=== PATIENT | female | born 1955 | race Caucasian/White ===

== ENCOUNTER → 2023-10-03 15:56 | Outpatient (REF) | payer MEDICARE, SELFPAY | LOC: RAD 15:56 | PROVIDERS: ATTENDING PHYSICIAN Nurse Practitioner Family | DX: E04.1 Nontoxic single thyroid nodule (principal) | CPT/HCPCS: 76536 ==

== ENCOUNTER 2023-11-27 10:33 | Emergency (ER) | payer MEDICARE, SELFPAY ==
[2023-11-27 10:34] VITALS: BMI 34.6
[2023-11-27 10:38] VITALS: BP 140/79
--- NOTE | 2023-11-27 11:17 | ED.GENMED ---
History of Present Illness
General
Chief Complaint: Eye Problems
Source: patient
Exam Limitations: none
Time Seen by Provider: 11/27/23 11:06
Travel History
Have you had any contact with someone who has COVID-19?: No
Do you have any symptoms of coronavirus? Fever > 100 degrees, chills, cough, shortness of breath, sore throat, loss of taste or smell, muscle aches, or headache?: No
History of Present Illness
History of Present Illness:
67-year-old female presents with atraumatic onset of pain and swelling behind the left knee radiating into the leg into the ankle. The pain was a constant ache. No associated chest pain or shortness of breath. She applied ice and elevated. She
notes the swelling might be somewhat better after these interventions. She also noted some right eye discomfort that started this morning. No associated vision change or headache. No fever. No double vision. She denies any discharge or
drainage. No other complaints at this time
Past History
Past History
ED Past Medical History: Cancer (Uterine cancer), NIDDM, Other (Bronchitis, pneumonia, arthritis) and Other (Left jugular DVT from Infusaport along w/ infection from port/line)
ED Past Surgical History: Gynecological (Hysterectomy uterine for CA); Negative Appendectomy or Bowel resection
Social History
Tobacco: Non-smoker
Alcohol: Occasional
Drug: None
Personal:
Living: with family
Employment: Not employed
Family History
Family History: Hypertension
Phy Exam
Physical Exam
Physical Exam:
General: Well-appearing male no acute respiratory distress
HEENT: Normocephalic atraumatic bilateral eyes pupils equal round reactive to light sclera without injection. No proptosis extract motions are intact.
: Regular rate and rhythm no murmurs
Lungs: Clear no wheeze or rales
Musculoskeletal exam: Mild diffuse tenderness about the posterior knee on the left side of the calf and the ankle. No deformities. Good range of motion. No obvious effusion in the ankle or the knee
Vascular: 2+ dorsalis pedis pulse left foot
Neurologic: Alert and oriented no facial asymmetry or slurred speech
Course
Orders/Labs/Results
Orders:
Orders
11/27/23 11:17
Venous Doppler Lwr Ext Left [US Periph Venous LOWER Ext LT] Urgent
Comment:
Reason For Exam: swelling, pain
11/27/23 12:57
Ibuprofen [Motrin] 600 mg PO NOW STA
11/27/23 13:32
Complete Blood Count/With Diff Urgent
Comprehensive Metabolic Panel Urgent
Lyme Progressive Urgent
Sed Rate [Erythrocyte Sed Rate] Urgent
Urinalysis Reflex To Culture Urgent
Date Specimen was Collected: 11/27/23
Time Specimen was Collected: 12:59
11/27/23 13:37
Tetracaine HCl [Tetracaine 0.5% Ophthalmic Solution] 1 drop .ROUTE .STK-MED ONE
Abnormal Lab Results
11/27/23
13:32
Carbon Dioxide 31 H mmol/L
(22-30)
Glucose 111 H mg/dl
(70-99)
11/27/23 13:32
11/27/23 13:32
Vital Signs
Initial and Last Documented VS:
Initial Vital Signs
Temp Pulse Resp BP Pulse Ox
98.2 F 79 16 140/79 96
11/27/23 10:38 11/27/23 10:38 11/27/23 10:38 11/27/23 10:38 11/27/23 10:38
Last Documented Vital Signs
Temp Pulse Resp BP Pulse Ox
98.2 F 79 16 140/79 96
11/27/23 10:38 11/27/23 10:38 11/27/23 10:38 11/27/23 10:38 11/27/23 10:38
MDM/Problems Addressed
Differential Diagnosis Includes:
Atraumatic left leg pain with subjective swelling. Question Poe's cyst versus DVT versus tendinitis. Would not suspect fracture secondary to atraumatic nature
Right discomfort. Unclear etiology. Check pressure. No signs of infection otherwise.
*Critical Care Note
Total Time (30-74mins, 75-104mins- exclusive of procedures): Not Applicable
Update Note
Update Note:
Right eye exam with fluorescein stain and [place]عر[place] lamp. There is no corneal abrasion. There is no foreign body upon eversion of the lids. The pressure was with a Ferny-Pen. The pressure was 15 mmHg. Do not suspect acute glaucoma
Ultrasound left leg ordered secondary to swelling and pain in calf. This was negative for DVT. No signs of infection in the leg. She has a good pulse. Do not suspect arterial compromise.
Labs reviewed without significant finding. Sed rate normal. Do not suspect temporal arteritis causing eye pain. Blood count and chemistry normal. Lyme test pending. Recommended ibuprofen or Tylenol. Stable for discharge. Suspect possible
radicular symptoms to the left leg
ED Attending Note
-
Portions of this chart may have been created with voice recognition software.� Occasional wrong word or��sound alike� substitutions may have occurred due to the inherent limitations of voice recognition software.
Discharge Plan
Departure
Patient Disposition: Home (Routine Discharge)
Date of Disposition: 11/27/23
Time of Disposition: 14:28
Patient with high blood pressure during this ER visit?: No
Discharge Problem:
Leg pain
Instructions: Muscle and Bone Pain (DC)
Prescriptions:
No Action
metformin 500 MG tablet extended release 24 hr
500 mg PO DAILY
Aspirin Low (Enteric Coated):
81 mg PO DAILY
prednisone 10 mg Tablet
See Rx Instructions .ROUTE .COMPLEX Qty: 30 0RF
Rx Instructions:
Take By Mouth:
40 mg daily x3 days, 30 mg daily x3 days,
20 mg daily x3 days, 10 mg daily x3 days.
tramadol 50 mg tablet
50 mg PO TID PRN (Reason: pain) Qty: 12 0RF
ciprofloxacin HCl [Cipro] 250 mg tablet
250 mg PO BID Qty: 10 0RF
benzonatate 200 mg capsule
200 mg PO BID PRN (Reason: cough) Qty: 14 0RF
cephalexin 500 mg capsule
500 mg PO QID 7 Days Qty: 28 0RF
Referrals:
Amrita Coleman CRNP [Family Provider] -
Activity Restrictions/Additional Instructions:
Use Tylenol or ibuprofen for pain. Return here for worsening symptoms otherwise follow-up with your family doctor
Interventions
Interventions:
*Risk Screen - Suicide Last Done: 11/27/23 10:38
*General Assessment Last Done: 11/27/23 10:38
*Neglect/Abuse Screening Last Done: 11/27/23 10:38
ED- Fall Risk Assessment Last Done: 11/27/23 11:12
*ED COVID-19 Vaccine History Last Done: 11/27/23 11:11
ED-Musculoskeletal Assessment Last Done: 11/27/23 11:12
Discharge Date and Time
Print Language: PUERTO RICAN
[2023-11-27] MEDS: MOTRIN 600 MG PO (13:08)
[2023-11-27 13:41] LABS: % Basophils 0.9 % (0-2); % Eosinophils 1.6 % (0-6); % Immature Granulocytes 0.3 % (0-0.5); % Monocytes 6.7 % (1.7-9.3); % Neutrophils 57.5 % (42.2-75.2); Absolute Basophils 0.1 10^3/uL (0-0.2); Absolute Eosinophils 0.1 10^3/uL (0-0.7); Absolute Lymphocytes 2.2 10^3/uL (1.2-3.4); Absolute Monocytes 0.5 10^3/uL (0.1-0.6); Absolute Neutrophils 3.9 10^3/uL (1.4-6.5); Hematocrit 37.5 % (37.0-47.0); Hemoglobin 12.4 g/dL (12.0-16.0); Mean Corp Hgb Conc. 33.1 g/dL (33.0-37.0); Mean Corpuscular Hgb 29.4 pg (27.0-31.0); Mean Corpuscular Volume 88.9 fL (81.0-99.0); Mean Platelet Volume 9.2 fL (7.4-10.4); Nucleated Red Blood Cells % 0 %; Platelet Count 277 10^3/uL (130-400); Red Blood Cell Count 4.22 10^6/uL (4.20-5.40); Red Cell Dist. Width 12.7 % (11.5-14.5); White Blood Cell Count 6.7 10^3/uL (4.8-10.8)
[2023-11-27 13:42] LABS: Urine Albumin Negative (Neg - Trace); Urine Bilirubin Negative (Negative); Urine Character Clear (Clear); Urine Color Yellow; Urine Glucose Negative (Negative); Urine Ketone Negative (Negative); Urine Leukocyte Negative (Negative); Urine Nitrite Negative (Negative); Urine Occult Blood Negative (Negative); Urine Urobilinogen Negative (Neg - 1+)
[2023-11-27 13:57] LABS: Erythrocyte Sed Rate 1 mm/hour (0-20)
[2023-11-27 13:58] LABS: ALT (SGPT) 19 U/L (0-35); AST (SGOT) 22 U/L (14-36); Alkaline Phosphatase 79 U/L (38-126); Blood Urea Nitrogen 11 mg/dl (7-17); Calcium 9.4 mg/dl (8.4-10.2); Carbon Dioxide 31 mmol/L (22-30); Chloride 104 mmol/L (98-107); Estimated Creatinine Clearance 68 ml/min; Glucose 111 mg/dl (70-99); Potassium 4.4 mmol/L (3.5-5.1); Sodium 138 mmol/L (135-145); Total Bilirubin 0.7 mg/dl (0.2-1.3); Total Protein 6.6 g/dl (6.3-8.2); eGFR > 60.00
[2023-11-27 14:37] VITALS: BP 123/69
[2023-11-29 15:03] LABS: Lyme Antibody Screen, EIA Negative (Negative)
== END 2023-11-27 14:37 | disposition home or self-care (01) ==
LOC: EMR 10:33
PROVIDERS: Physician Assistant; EMERGENCY PHYSICIAN Emergency Medicine; FAMILY PHYSICIAN Nurse Practitioner Family
DX: M79.605 Pain in left leg (principal); E11.9 Type 2 diabetes mellitus without complications; Z82.49 Family history of ischemic heart disease and other diseases of the circulatory system; Z85.42 Personal history of malignant neoplasm of other parts of uterus; Z86.718 Personal history of other venous thrombosis and embolism; Z90.49 Acquired absence of other specified parts of digestive tract; Z90.710 Acquired absence of both cervix and uterus
CPT/HCPCS: 99284; 80053; 81003; 85025; 85652; 86618; 93971

== ENCOUNTER → 2023-12-27 15:18 | Outpatient (REF) | payer MEDICARE, SELFPAY | LOC: PAVMRI 15:18 | PROVIDERS: ATTENDING PHYSICIAN Orthopaedic Surgery; FAMILY PHYSICIAN Nurse Practitioner Family | DX: M17.12 Unilateral primary osteoarthritis, left knee (principal); M25.562 Pain in left knee | CPT/HCPCS: 73721 ==

== ENCOUNTER 2024-02-25 04:33 | Inpatient (IN) | payer MEDICARE, SELFPAY ==
[2024-02-24 20:50] VITALS: BP 172/90
[2024-02-24 21:56] VITALS: BP 154/78
[2024-02-24 22:00] VITALS: BP 161/70
[2024-02-24 22:01] VITALS: BMI 33.1
[2024-02-24 22:05] LABS: % Basophils 0.6 % (0-2); % Eosinophils 1.7 % (0-6); % Immature Granulocytes 0.3 % (0-0.5); % Lymphocytes 32.5 % (20.5-51.1); % Monocytes 6.1 % (1.7-9.3); % Neutrophils 58.8 % (42.2-75.2); Absolute Basophils 0.1 10^3/uL (0-0.2); Absolute Eosinophils 0.2 10^3/uL (0-0.7); Absolute Monocytes 0.6 10^3/uL (0.1-0.6); Absolute Neutrophils 5.4 10^3/uL (1.4-6.5); Hematocrit 40.1 % (37.0-47.0); Hemoglobin 13.5 g/dL (12.0-16.0); Mean Corp Hgb Conc. 33.7 g/dL (33.0-37.0); Mean Corpuscular Volume 89.1 fL (81.0-99.0); Mean Platelet Volume 9.1 fL (7.4-10.4); Nucleated Red Blood Cells % 0 %; Platelet Count 265 10^3/uL (130-400); Red Cell Dist. Width 12.5 % (11.5-14.5); White Blood Cell Count 9.1 10^3/uL (4.8-10.8)
[2024-02-24] MEDS: NSS 1000 IV (22:18)
[2024-02-24] MEDS: ZOFRAN 4 MG IV (22:19)
[2024-02-24] MEDS: DILAUDID 1 MG IV (22:19)
[2024-02-24 22:20] LABS: ALT (SGPT) 18 U/L (0-35); AST (SGOT) 21 U/L (14-36); Albumin 4.5 g/dl (3.5-5.0); Alkaline Phosphatase 91 U/L (38-126); Blood Urea Nitrogen 21 mg/dl (7-17); Calcium 9.9 mg/dl (8.4-10.2); Carbon Dioxide 27 mmol/L (22-30); Chloride 103 mmol/L (98-107); Estimated Creatinine Clearance 59 ml/min; Glucose 166 mg/dl (70-99); Lipase 96 U/L (23-300); Potassium 4.1 mmol/L (3.5-5.1); Sodium 137 mmol/L (135-145); Total Bilirubin 0.6 mg/dl (0.2-1.3); eGFR > 60.00
--- NOTE | 2024-02-24 22:35 | ED.GENMED ---
History of Present Illness
General
Chief Complaint: Abdominal Pain
Source: patient and spouse
Exam Limitations: none
Time Seen by Provider: 02/24/24 22:03
Nursing documentation reviewed up to this point in time: agreed with
History of Present Illness
History of Present Illness:
This is a 68-year-old woman who has history of kwn-iqgxlmk-ajlnmgtod diabetes, maintained on metformin. She also has remote history of endometrial carcinoma 2015 treated with hysterectomy and chemotherapy. No reported recurrence. She complains of
constipation over the past several days passing small hard stools. She has not been taking anything for constipation but tonight while attempting to pass a bowel movement, significantly straining, she was successful in passing a few small hard
stools but then developed abrupt onset of moderate to severe right upper quadrant pain that began approximately 30 minutes prior to arrival. Right upper quadrant pain radiates across her upper abdomen to mid abdomen and has been persistent since
onset around 8 PM. She denies nausea nor vomiting, denies chest nor back nor flank pain, no fever nor chills. No dysuria and urgency and or hematuria. No history of similar episodes of pain.
She does admit to occasional episodes of constipation but not on a regular nor frequent basis.
She has not attempted to take anything for pain. No definitive aggravating or relieving factors.
Her only daily medication is metformin.
Past History
Past History
ED Past Medical History: Cancer (Uterine cancer), NIDDM, Other (Bronchitis, pneumonia, arthritis) and Other (Left jugular DVT from [place] along w/ infection from port/line)
ED Past Surgical History: Gynecological (Hysterectomy uterine for CA) and Urological (Bladder lift December 2022); Negative Appendectomy or Bowel resection
Social History
Tobacco: Non-smoker
Alcohol: Occasional
Drug: None
Personal:
Living: with family
Employment: Not employed
Family History
Family History: Hypertension
Phy Exam
Physical Exam
Physical Exam:
GENERAL: 68-year-old overweight woman appears her stated age. Awake and alert, pleasant, appears in moderate distress related to pain. Cooperative. is accompanying.
EYE: anicteric
NECK: Supple, nontender, no meningismus, no significant adenopathy.
ENT: oral mucosa is moist. No rhinorrhea.
CARDIAC: Regular rate and rhythm. no murmur.
LUNGS: Clear breath sounds bilaterally, no acute respiratory distress, no wheezes/rales/rhonchi
ABDOMEN: Rotund, soft, nondistended, exquisite tenderness right upper quadrant as well as mild to moderate tenderness epigastric region, mild guarding of right upper quadrant, no rebound nor rigidity, no palpable masses, no cvat. Mildly hyperactive
bowel sounds.
NEUROLOGICAL: Alert and oriented x3, no focal neuro deficits.
SKIN: Warm and minimally diaphoretic, normal color, skin intact. No rash.
MUSCULOSKELETAL: No C/C/E. peripheral pulses are full and equal b/l. No palpable tenderness.
PSYCH: Mildly anxious related to pain. Cooperative.
Course
Orders/Labs/Results
Orders:
Orders
02/24/24 20:53
Electrocardiogram (*1) Urgent
Reason for Study: Abdominal Pain
EKG- Treatment ONCE
IV Insert/Care/Rem.- Treatment PRN
02/24/24 21:57
Complete Blood Count/With Diff Urgent
Comprehensive Metabolic Panel Urgent
Lipase Urgent
02/24/24 22:15
0.9% Sodium Chloride 1000 ml [Nss] 1,000 ml IV BOLUS
HYDROmorphone [Dilaudid] 1 mg IV NOW STA
Ondansetron Injectable [Zofran] 4 mg IV NOW STA
02/24/24 22:17
HYDROmorphone [Dilaudid] 1 mg .ROUTE .STK-MED ONE
Ondansetron Injectable [Zofran] 4 mg .ROUTE .STK-MED ONE
02/24/24 22:24
Lactic Acid Urgent
02/24/24 23:38
Urinalysis Reflex To Culture Urgent
Date Specimen was Collected: 02/24/24
Time Specimen was Collected: 23:37
Urine Microscopic Reflex Cult Urgent
02/25/24 00:01
CT Abd/pelvis W Iv Cont Urgent
Reason For Exam: severe, acute RUQ-epigastric abd pain
Abnormal Lab Results
02/24/24 02/24/24
21:57 23:38
BUN 21 H mg/dl
(7-17)
Glucose 166 H mg/dl
(70-99)
Leukocyte Esterase Rfl Trace A
(Negative)
Urine Bacteria (Reflex) Few A
(Negative)
02/24/24 21:57
02/24/24 21:57
Vital Signs
Initial and Last Documented VS:
Initial Vital Signs
Temp Pulse Resp BP Pulse Ox
97.9 F 83 22 172/90 98
02/24/24 20:50 02/24/24 20:50 02/24/24 20:50 02/24/24 20:50 02/24/24 20:50
Last Documented Vital Signs
Temp Pulse Resp BP Pulse Ox
97.9 F 83 15 124/59 97
02/24/24 20:50 02/25/24 01:15 02/25/24 01:15 02/25/24 01:15 02/25/24 01:15
MDM/Problems Addressed
Differential Diagnosis Includes:
Concern for acute biliary colic, cholecystitis, pancreatitis, small bowel obstruction, constipation, renal colic/right ureteric stone, ischemic bowel.
Will medicate for pain, initiate IV fluids.
Patient noted to be moderately hypertensive likely related to pain. Afebrile. Without tachycardia. No respiratory distress, normal pulse ox.
Labs are pending including LFTs, lipase. Will add lactic acid, urinalysis.
Will plan for CT abdomen pelvis with IV contrast.
Chronic conditions affecting care: DM, Previous abdomnial surgery (Hysterectomy 2014, bladder lift 2022) and Cancer (Prior history of uterine cancer 2014)
*Radiology
Radiology exam reviewed: radiology read reviewed
*Pulse Oximetry
Patient hypoxic: no
*EKG
Interpreted by ED Provider?: Yes
Interpretation: normal
Comparison EKG: no changes (Unchanged from previous October 2022)
Rate: normal
Rhythm: sinus
[place]: normal axis
Interval: normal interval
QRS Pattern: normal QRS
Ischemia: no ischemia
*Food Operations Manager Interpretation
Rate: normal
Interpretation: normal
Rhythm: sinus
*Critical Care Note
Total Time (30-74mins, 75-104mins- exclusive of procedures): Not Applicable
Update Note
Update Note:
02/25/2024 0156 AM
Labs are unremarkable but CAT scan shows cholelithiasis with suspected 3 mm stone impacted in the cystic duct. Gallbladder wall is thickened up to 5 to 6 mm and minimal haziness in the pericholecystic fat concerning for acute cholecystitis. There
is no bile duct dilatation.
Case discussed with general surgery who recommends patient be admitted to hospitalist service and will evaluate and consult.
Will initiate IV antibiotics and admit to hospitalist service.
ED Attending Note
-
Portions of this chart may have been created with voice recognition software.� Occasional wrong word or��sound alike� substitutions may have occurred due to the inherent limitations of voice recognition software.
Discharge Plan
Departure
Patient Disposition: Admit
Date of Disposition: 02/25/24
Time of Disposition: 01:57
Presentation/result/management discussed w/ accepting MD/DO: Hospitalist
Condition: Fair
Discharge Problem:
Acute calculous cholecystitis
Prescriptions:
No Action
metformin 500 MG tablet extended release 24 hr
500 mg PO DAILY
Referrals:
Sergio Betancourt DO [Family Provider] -
Interventions
Interventions:
*Risk Screen - Suicide Last Done: 02/24/24 20:50
*General Assessment Last Done: 02/24/24 20:50
*Neglect/Abuse Screening Last Done: 02/24/24 20:50
ED- Fall Risk Assessment Last Done: 02/24/24 22:01
*ED COVID-19 Vaccine History Last Done: 02/24/24 22:02
IV-Mwvkgz-Hiuzdktowk Assessment Last Done: 02/24/24 22:02
Discharge Date and Time
Print Language: MACEDONIAN
[2024-02-24 22:49] LABS: Lactic Acid 1.4 mmol/L (0.7-2.0)
[2024-02-24 23:00] VITALS: BP 119/55
[2024-02-24 23:45] LABS: Urine Albumin Negative (Neg - Trace); Urine Bilirubin Negative (Negative); Urine Character Clear (Clear); Urine Color Straw; Urine Glucose Negative (Negative); Urine Ketone Negative (Negative); Urine Leukocyte Trace (Negative); Urine Nitrite Negative (Negative); Urine Occult Blood Negative (Negative); Urine Specific Gravity 1.005 (<1.030); Urine Urobilinogen Negative (Neg - 1+)
[2024-02-25] VITALS (15 sets, daily range): BP systolic 116–140; BP diastolic 59–75; BMI 35.9
[2024-02-25 00:27] LABS: Urine Squamous Cell 0-2 /LPF (Few)
[2024-02-25 00:30] LABS: Urine Bacteria Few (Negative); Urine Red Blood Cell 0-2 /HPF (0-2); Urine White Cell 0-2 /HPF (0-5)
[2024-02-25] MEDS: CEFOTAN 2000 MG IV (02:17)
--- NOTE | 2024-02-25 04:26 | HPS.HSE ---
Family Physician
-
Family Physician: Sergio Betancourt, DO
Chief Complaint
-
RUQ Pain
History of Present Illness
68yo F wtih PMH DM2, Outpatient workup ongoing for Thyroid Nodule, Endometrial Ca (2014) s/p chemo/hysterectomy presents to ER with complaint of RUQ pain. Pt states she ate [employer] (chicen nuggets, fries, caramel latte) last evening. Se they felt
constipated and tried to pass a BM while straining on the toilet. Pain progressed to RUQ, 10/10 in severity. Denies N/V, F/C, dizziness/LH, CP, palps, wheezing, cough, sob, dysuria, flank pain, calf or leg pain. Denies recurrence in past. Denies
ETOH abuse.
ER course: Pt presents V.S.S. WBC 9.1K, BUN/Cr 21/0.9, LA 1.4, LFTs wnl, UA wnl. CT a/p: cholelithiasis with several small calcified gall stones, 3mm gall stone impacted in cystic duct, GB wall thickened 5-6mm, no pericholecystitis fluid. May
signify acute cholecystitis.� S/P Cefotetan 2gm IV, Dilaudid 1mg IV, 1LNS Bolus, and 4mg IV zofran in ER. Case D/W Surgery recommending admission to medicine with eval in AM.
Medical History
Past Medical History
Past Medical History: Reports Other (DM2, Outpatient workup ongoing for Thyroid Nodule, HTN, Endometrial Ca (2014) s/p chemo/hysterectomy)
Past Surgical History: Reports Other (Gynecological (Hysterectomy uterine for CA) and Urological (Bladder lift December 2022); Negative Appendectomy or Bowel resection)
Social History
Tobacco: Non-smoker
Alcohol: None
Drug: None
Personal:
Living: With Family
Family History
Family History: Other (Mother with PPM. Father with ESRD. Brother with DM2)
Allergies / Home Medications
Allergies reflects when Allergies were last updated in [employer].
Home Medications with original date entered in [employer]
Allergy/Medication List:
Allergies
Allergy/AdvReac Type Severity Reaction Status Date / Time
latex [Latex] Allergy Rash Verified 11/27/23 10:43
Sulfa (Sulfonamide Allergy Hives Verified 11/27/23 10:43
Antibiotics)
sulfamethoxazole Allergy Hives Verified 11/27/23 10:43
trimethoprim Allergy Hives Verified 11/27/23 10:43
Home Medications
metformin 500 mg tablet,extended release 24 hr 500 mg PO DAILY 04/15/13
Review of Systems
-
A 12 point ROS was completed and negative except as noted: Yes
Physical Exam
Vital Signs
Vital Signs
Temp Pulse Resp BP Pulse Ox
97.9 F 79 20 137/70 98
02/24/24 20:50 02/25/24 02:00 02/25/24 02:00 02/25/24 02:00 02/25/24 02:00
Physical Exam
General: Well Developed, Well Nourished and No Apparent Distress
HEENT: NormoCephalic, Moist mucous membranes and Atraumatic
Respiratory: Clear
Cardiac: S1/S2 and Regular Rhythm; No Murmur or Rub
GI: Soft, Non Distended, Normal Bowel Sounds and Other (Mild RUQ TTP with deep palpation. ); No Organomegaly
Rectal: Deferred by Provider
Genito-urinary: No costovertebral tender; No Marc
Musculoskeletal: No Clubbing, No Cyanosis and No Edema
Skin: No Rash
Neuro: Awake, Alert, Oriented, AO x 3 and Nonfocal/grossly intact
Psych: Calm
Laboratory Results
-
02/24/24 21:57
02/24/24 21:57
Laboratory Results
Lactic Acid 1.4 mmol/L (0.7-2.0) 02/24/24 22:24
Total Bilirubin 0.6 mg/dl (0.2-1.3) 02/24/24 21:57
AST 21 U/L (14-36) 02/24/24 21:57
ALT 18 U/L (0-35) 02/24/24 21:57
Alkaline Phosphatase 91 U/L (38-126) 02/24/24 21:57
Lipase 96 U/L (23-300) 02/24/24 21:57
Data Reviewed
-
Diagnostic Radiology: Image Personally Visualized and interpreted
CT Scan: Image Personally Visualized and interpreted
Medical Tests (Nuc Med, Echo, EKG etc): Image Personally Visualized and interpreted (EKG: NSR @ 79bpm, Inferior and anterior q-waves, No acute ischemic changes, QTC 415ms. No change from 10/2023.)
Lab Data: Labs Reviewed by me
Old Records: Reviewed
Impression/Plan
-
RUQ Pain / Acute Cholecystitis
- Afebrile, No leukocytosis
- LFTs wnl. Lipase wnl. UA without evidence of infection.
- CT a/p: cholelithiasis with several small calcified gall stones, 3mm gall stone impacted in cystic duct, GB wall thickened 5-6mm, no pericholecystitis fluid. May signify acute cholecystitis.�
- Continue NS @ 100cc/hr
- Change cefotetan to zosyn
- Prn Antiemetics
- Prn Tylenol, Toradol, and IV Morphine for analgesia
- Case D/W Surgery recommending admission to medicine with eval in AM.
Hyperglycemia/DM2 - BG 166 on admission. Pt reports taking metformin only once daily, despite Rx for BID. Holding while NPO. SSI/accuchecks
Thyroid nodule - As per patient, she has outpatient follow up for biopsy.
Diet: NPO
DVT Ppx: Lovenox
Code Status: Full Code
[2024-02-25 07:04] LABS: Glucose - Point of Care 108 mg/dl (70-99)
[2024-02-25 08:20] LABS: Glucose - Point of Care 116 mg/dl (70-99)
[2024-02-25] MEDS: NOVOLOG FLEXPEN-LOW RESISTANCE SC ×2 (08:27→11:35)
[2024-02-25] MEDS: NSS 1000 IV ×2 (09:00→14:31)
--- NOTE | 2024-02-25 09:01 | CON.GS ---
Addendum entered and electronically signed by Austin Gaspar MD 02/25/24 10:44:
I saw and examined the patient independently.
The resident's note was reviewed and I agree with the note, assessment and plan except where noted below.
Comment: This is a 68-year-old female with history of NIDDM, endometrial cancer status postchemotherapy and hysterectomy who presents with a 1 day history of postprandial right upper quadrant pain in the setting of similar attacks in the past.
Labs, imaging, exam all consistent with acute cholecystitis.
Will plan for a laparoscopic cholecystectomy with cholangiogram in the OR today.
N.p.o., IV fluids, IV antibiotics.
Risks/Benefits/Alternatives, expected postoperative course and possible complications (bleeding, infection, injury to surrounding structures, acute/chronic pain) discussed at length. Patient wishes to proceed with surgery. All questions answered.
Consent obtained.
I spent roughly 60 minutes in total for the care of this patient today including direct patient care and counseling, reviewing labs, imaging, coordination of care, as well as documentation.
Original Note:
Consultation
-
Performing Provider: Eric Edward MD ; Austin Gaspar MD
Reason for Consultation: Abdominal pain
Medical History
-
Chief Complaint: Right sided upper abdominal pain
History of Present Illness:
68-year-old female with known medical history of diabetes type 2, endometrial cancer s/p chemo/hysterectomy, ongoing workup for thyroid nodule presented with complaints of right upper quadrant abdominal pain. Patient reports that the pain started
after she ate chicken nuggets and [place] fries yesterday. She reports that she had some milder episodes of similar pain in the past and required no treatment. Reportedly she felt constipated for few days and she was trying to pass a bowel movement
and when she was straining she noticed the onset of pain which progressed in severity to 10 x 10. She denies nausea, vomiting, dizziness, chest pain, shortness of breath, any other symptoms.
ER course: Patient was vitally stable on admission. WBC 9.1K, BUN/Cr 21/0.9, LA 1.4, LFTs wnl, UA wnl.
CT abdomen pelvis: Cholelithiasis with several small calcified gall stones, thickening of gallbladder wall.
Past Medical History
Past Medical History: HTN and Other (DM2, thyroid nodule, endometrial cancer-s/p chemo/as directed)
Past Surgical History: Gynecological (Hysterectomy) and Urological (Bladder lift December 2022)
Social History
Tobacco: Non-Smoker
Alcohol: None
Drug: None
Personal:
Living: With Family
Family History
Family History: Reviewed & Not Pertinent
Allergies / Home Medications
Allergy/AdvReac Type Severity Reaction Status Date / Time
latex [Latex] Allergy Rash Verified 11/27/23 10:43
Sulfa (Sulfonamide Allergy Hives Verified 11/27/23 10:43
Antibiotics)
sulfamethoxazole Allergy Hives Verified 11/27/23 10:43
trimethoprim Allergy Hives Verified 11/27/23 10:43
�Medication �Instructions �Recorded �Confirmed �Type
metformin 500 mg tablet,extended 500 mg PO DAILY diabetes 04/15/13 02/25/24 History
release 24 hr
Review of Systems
-
History Source: Patient
All other systems: Negative unless noted
Abdomen/GI: Abdominal Pain
A 10 point review of systems was completed, and was negative except as per HPI.
Physical Exam
Vital Signs
Temp Pulse Resp BP Pulse Ox
97.7 F 73 15 128/67 96
02/25/24 07:41 02/25/24 07:41 02/25/24 07:41 02/25/24 07:41 02/25/24 07:41
02/24/24 02/25/24 02/26/24
06:59 06:59 06:59
Actual Weight 79.379 kg
Body Mass Index (BMI) 33.1
Lab Results
02/24/24 21:57
02/24/24 21:57
WBC 9.1 10^3/uL (4.8-10.8) 02/24/24 21:57
Hgb 13.5 g/dL (12.0-16.0) 02/24/24 21:57
Hct 40.1 % (37.0-47.0) 02/24/24 21:57
Plt Count 265 10^3/uL (130-400) 02/24/24 21:57
Abs Immat Gran (auto) 0.0 10^3/uL (0-0.05) 02/24/24 21:57
Neutrophils % 58.8 % (42.2-75.2) 02/24/24 21:57
Physical Exam
General: Well Developed and No Apparent Distress
GI: Soft, Non Distended, Tender (Mild tenderness in the right upper quadrant), Obese and Other (Previous well-healed postsurgical scars)
Skin: Warm and Dry
Neuro: Awake, Alert and Oriented
Psych: Calm
Data Reviewed
-
CT Scan: Image Personally Visualized and interpreted and Discussed with Physician
Labs: Labs Reviewed by me, Discussed with Physician and Discussed with Patient
Total Time Spent with Patient (in minutes): 20
Assessment / Plan
-
68-year-old female with known history of diabetes type 2 presented with sudden onset of right upper quadrant pain after eating at [employer] (chicken nuggets and [place] fries)
Acute cholecystitis
-NPO
-IV Zosyn
-Continue IV fluids
-Plan for laparoscopic cholecystectomy
Discussed the procedure with patient at bedside. Reviewed indications for cholecystectomy. Patient in agreement to proceed with surgery for definitive management. Laparoscopic cholecystectomy was reviewed in detail including the operative
technique and and potential operative findings with their management. Discussed benefits of surgery and risks such as but not limited to bleeding, infectious or wound related complications, iatrogenic injury to surrounding viscera.
We discussed the variable timeframe of postoperative recovery and hospitalization pending operative findings. Patient verified understanding.
[2024-02-25] MEDS: ZOSYN 50 IV ×2 (09:02→17:05)
--- NOTE | 2024-02-25 10:11 | CM ---
Patient seen at bedside. Patient states that she lives with her and mother. Patient stated that the home is a 2 story home but she stays on the first floor. Patient stated that she was having difficulty with bills and was anticipating
talking to [facility]. [facility] requesting update re status. Patient PCP is Dr. Dutta and she uses the [facility] in [place] for pharmacy needs. Patient has a cane but no other DME. CM to provide information on resources and CM will continue to
follow for discharge planning needs.
Plan; home with no needs.
--- NOTE | 2024-02-25 12:01 | W.SUR.PREOP ---
Pre-Operative Surgical Note
-
I have examined this patient prior to the performance of the scheduled procedure.
The patient's condition is unchanged from the time of the current History and
Physical and the patient is able to undergo the scheduled procedure.
--- NOTE | 2024-02-25 13:05 | W.IMMPOSTOP ---
Surgical Immed Post Op Note
-
Primary Surgeon: Austin Gaspar MD
Assisting Surgeon: None
Pre-op Diagnosis: Acute cholecystitis
Post-op Diagnosis: Same
Procedure Performed: Laparoscopic cholecystectomy with cholangiogram
Anesthesia Type: General
Specimen / Cultures: Gallbladder and contents
Estimated Blood Loss: 11 cc
Complications: None
Operative Findings: Acutely inflamed gallbladder particular involving the lower third. A critical view of safety was obtained prior to cholangiogram which demonstrated no filling defects and normal biliary anatomy. The duct was ligated with a 0
PDS Endoloop.
POST OP PLAN:
Imaging: None
Labs: Routine AM
Diet: Advance to Regular as tolerated
Analgesia: Tylenol 650mg q6 Xavier, Nita 5mg q6 PRN, Dilaudid 0.5mg q2h PRN
Neuro/vascular checks: q4h
AC/AP: Hold Therapeutic AC, Ok for DVT PPx
Activity: Ad Monet
Wound/Incisions/Drains: Routine
Abx: Continue while in hospital
Dispo: RNF
--- NOTE | 2024-02-25 13:07 | OR.RPT ---
Operative Report
Operative Report
Patient Name: Irene Ross
: 1955
Date of Operation: 02/25/2024
Preoperative Diagnosis: Acute cholecystitis
Postoperative Diagnosis: Same
Procedure(s):
Laparoscopic Cholecystectomy with Cholangiogram
Surgeon(s):
Dr. Gaspar
Budget Coordinator(s):
AMAURI Arevalo
Anesthesia: General
Estimated Blood Loss: 11 cc
Urine Output: None
Drains/Lines/Implants: None
Specimens:
1. Gallbladder and contents
HPI/Surgical Indications:
This is a 68-year-old female who presents with a 1 to 2-day history of postprandial right upper quadrant abdominal pain, in the setting of previous similar attacks in the past. Exam, labs and imaging are consistent with acute cholecystitis.
Risks/Benefits/Alternatives were discussed at length, and the patient agreed to proceed with surgery.
Findings:
The patient was noted to have mild gallbladder inflammation with overlying omental adhesions and edema. A Critical View of Safety was obtained. A cholangiogram showed no filling defects in the biliary system with the Left, Right Anterior, Right
posterior hepatic ducts, CHD, cystic duct and CBD all identified. There was brisk flow of dye into the duodenum.
Procedure Description:
The patient was brought to the Operating Room and placed in the supine position with one arm tucked. Following uneventful induction of general endotracheal anesthesia, an orogastric tube was placed. The abdomen was prepped and draped in the usual
sterile fashion. A timeout was performed confirming the procedure, consent, and that IV antibiotics were infused and sequential compression devices were confirmed to be on. The abdomen was entered using a left subcostal Veress technique which
required 1 pass followed by a right upper quadrant periumbilical 5 mm Optiview trocar. Pneumoperitoneum to 15 mmHg pressure was obtained without difficulty and we confirmed that no injury had occurred during our entry. The patient was positioned in
reverse Trendelenberg and rotated with the right side up slightly. Two 5mm trocars were then placed along the right subcostal margin, and a 12 mm port in the epigastrium. There is a significant adhesions overlying the liver to the anterior
abdominal wall similar to that seen in [place], these were lysed using electrocautery to allow better mobilization of the liver. The gallbladder was also fairly distended but using a locking grasping forceps, the fundus of the gallbladder
wasretracted cephalad and to the right. There was a fair amount of periduodenal fat plastered over the inferior third of the infundibulum, these were lysed with electrocautery and blunt dissection. Using appropriate grasping instruments, the
peritoneum overlying the triangle of Calot was incised and extended superiorly on both the anterior and posterior gallbladder donvoan. The infundibulum was dissected off the cystic plate. The cystic triangle was dissected until a critical view of
safety was achieved. The cystic artery was medialized, dissected and controlled with 2 proximal clips and 1 distal. The cystic duct/gallbladder junction in turn was identified, dissected circumferentially and a clip was placed. A ductotomy was made
and a cholangiocatheter on an Fine clamp was inserted into the cystic duct. A C-arm was draped and brought into the field. An intra-operative cholangiogram was performed and was noted to have:
No filling defects in the biliary tree
No significant biliary dilation
Brisk flow of contrast into the duodenum
Normal biliary anatomy
The catheter was then removed and the cystic duct was controlled with a 5 mm titanium clip followed by a 0 PDS Endoloop . After ensuring both the artery and duct were divided, the gallbladder was freed from the liver using electrocautery. There
was some spillage of bile from our ductotomy, but no spillage of stones. The gallbladder bed was inspected and excellent hemostasis was obtained. The gallbladder was extracted through the 12 mm trocar site using an endocatch bag. The abdomen was
again irrigated and excellent hemostasis was assured. All remaining trocars were then removed and the pneumoperitoneum was evacuated. The 12 mm trocar site was closed using 0 PDS suture. All trocar sites were closed at the skin level using 4-0
Monocryl followed by Dermabond. Overall, the patient tolerated the procedure well and was taken to the Recovery Room postoperatively in stable condition.
I was the attending physician and performed the procedure with assistance from the BOTTOM SPRAYER above. I was present for all portions of the case, excluding skin closure.
Austin Gaspar MD
[2024-02-25] MEDS: DILAUDID 0.25 MG IV ×2 (13:48→14:16)
[2024-02-25 14:00] LABS: Glucose - Point of Care 167 mg/dl (70-99)
--- NOTE | 2024-02-25 14:45 | W.PN.UPDATE ---
Update Note
Progress Note Update
Patient seen and examined after post midnight admission. Patient denies chest pain or shortness of breath. Reports abdominal pain is controlled with analgesics at this time. Vital signs stable. No acute distress, regular rate and rhythm, normal
S1-S2. Clear to auscultation bilaterally. Positive bowel sounds, soft, nontender to light palpation, nondistended. For laparoscopic cholecystectomy today.
--- NOTE | 2024-02-25 15:00 | PTCARENOTE ---
Patient returned from PACU in bed; IVF infusing; Patient on 2L NC; Patient states pain is a 5 out of 10 and has improved with medication (see MAR); 5 Lap sites open to air with surgical glue; Call cabral within reach; Bed in lowest position and wheels
locked; Assessment and care ongoing
[2024-02-25] MEDS: ZOFRAN 4 MG IV ×2 (15:37→21:37)
[2024-02-25 16:43] LABS: Glucose - Point of Care 181 mg/dl (70-99)
--- NOTE | 2024-02-25 17:00 | PTCARENOTE ---
Patient with episode of nausea/vomiting; Patient vomited about 100mL of green fluid; Surgery MELTER OPERATOR made aware; Diet changed from regular to clear liquids; Care ongoing
[2024-02-25] MEDS: NOVOLOG FLEXPEN-LOW RESISTANCE 1 UNITS SC (17:06)
[2024-02-25] MEDS: LOVENOX 40 MG SC (17:06)
[2024-02-25] MEDS: DILAUDID 1 MG IV (21:04)
[2024-02-25 23:05] LABS: Glucose - Point of Care 200 mg/dl (70-99)
[2024-02-26 03:12] VITALS: BP 120/64
[2024-02-26] MEDS: NSS 1000 IV (03:37)
[2024-02-26] MEDS: ZOSYN 50 IV ×3 (05:34→12:04)
--- NOTE | 2024-02-26 07:16 | W.PN.HOSP.TC ---
Today's Communication/Plan
-
see bold
Assessment / Plan
Assessment / Plan
Gen: NAD, AAOx3.
Eyes: EOMI, PERRLA, no scleral icterus.
Neck: supple.
CV: RRR, +S1/S2, no m/r/g.
Resp: CTAB, no rales, wheezes, or rhonchi.
Abd: +BS, soft, NT to light palpation, ND
Skin: No rashes.
Neuro: CN 2-12 intact, non-focal.
Psych: Normal mood and affect.
CT A/P: Gallstones with a possible stone in the cystic duct. Associated gallbladder wall thickening. Possible acute cholecystitis. Abdominal ultrasound recommended if not previously performed. All findings are new.
Acute cholecystitis:
-s/p laparoscopic cholecystectomy with cholangiogram on 02/25/24
-currently on Zosyn, will likely stop today
-IVFs
-surgery following
-pain control
-currently on clears
DM2:
-change SSI to mod resistance
-check a1c
Thyroid nodule: As per patient, she has outpatient follow up for biopsy
Obesity due to excess calories
FULL/Lovenox
Anticipated Discharge: Within 24 hours
Subjective/Interval History
-
Date of Service: February 26, 2024
Pt states she was vomiting all night. Denies abdominal pain if she doesn't move.
Objective Data
-
Labs:
Laboratory Results
02/26/24
06:00
WBC Pending
Hgb Pending
Hct Pending
Plt Count Pending
Sodium Pending
Potassium Pending
Chloride Pending
Carbon Dioxide Pending
BUN Pending
Creatinine Pending
Glucose Pending
Calcium Pending
Total Bilirubin Pending
AST Pending
ALT Pending
Alkaline Phosphatase Pending
Vital Signs:
Vital Signs
Temp Pulse Resp BP Pulse Ox
98.1 F 81 20 120/64 92
02/26/24 03:12 02/26/24 03:12 02/26/24 03:12 02/26/24 03:12 02/26/24 03:12
I&O
02/25/24 02/26/24 02/27/24
06:59 06:59 06:59
Intake Total 3010 / 3010
Output Total 150 / 150
Balance 2860 / 2860
[2024-02-26 07:30] VITALS: BP 126/70
[2024-02-26 08:36] LABS: Glucose - Point of Care 147 mg/dl (70-99)
[2024-02-26] MEDS: TORADOL 10 MG IV (08:54)
[2024-02-26 10:17] LABS: % Basophils 0.2 % (0-2); % Immature Granulocytes 0.5 % (0-0.5); % Lymphocytes 15.5 % (20.5-51.1); % Monocytes 6.6 % (1.7-9.3); % Neutrophils 77.2 % (42.2-75.2); Absolute Immature Granulocytes 0.1 10^3/uL (0-0.05); Absolute Lymphocytes 1.5 10^3/uL (1.2-3.4); Absolute Monocytes 0.6 10^3/uL (0.1-0.6); Absolute Neutrophils 7.4 10^3/uL (1.4-6.5); Hematocrit 37.6 % (37.0-47.0); Hemoglobin 12.3 g/dL (12.0-16.0); Mean Corp Hgb Conc. 32.7 g/dL (33.0-37.0); Mean Corpuscular Hgb 29.9 pg (27.0-31.0); Mean Corpuscular Volume 91.3 fL (81.0-99.0); Mean Platelet Volume 9.5 fL (7.4-10.4); Nucleated Red Blood Cells % 0 %; Platelet Count 245 10^3/uL (130-400); Red Blood Cell Count 4.12 10^6/uL (4.20-5.40); Red Cell Dist. Width 12.9 % (11.5-14.5); White Blood Cell Count 9.5 10^3/uL (4.8-10.8)
[2024-02-26 11:03] LABS: ALT (SGPT) 69 U/L (0-35); AST (SGOT) 57 U/L (14-36); Alkaline Phosphatase 80 U/L (38-126); Blood Urea Nitrogen 13 mg/dl (7-17); Calcium 8.9 mg/dl (8.4-10.2); Carbon Dioxide 27 mmol/L (22-30); Chloride 105 mmol/L (98-107); Direct Bilirubin 0.2 mg/dl (0.0-0.4); Estimated Creatinine Clearance 69 ml/min; Glucose 125 mg/dl (70-99); Potassium 4.7 mmol/L (3.5-5.1); Sodium 138 mmol/L (135-145); Total Protein 6.4 g/dl (6.3-8.2); eGFR > 60.00
[2024-02-26 11:32] VITALS: BP 138/72
[2024-02-26 13:12] LABS: Glucose - Point of Care 103 mg/dl (70-99)
--- NOTE | 2024-02-26 14:49 | CM ---
Reviewed the chart notes and spoke with the patient at the bedside. IMM signed and placed on the chart. CM continues to be available to patient/family and is monitoring medical plan for needs at discharge.
Plan: Discharge to home when medically stable.
[2024-02-26 15:06] VITALS: BP 123/68
--- NOTE | 2024-02-26 16:08 | W.PN.GS2 ---
Today's Communication / Plan
-
Dispo planning
Assessment / Plan
-
68-year-old female postoperative day 1 laparoscopic cholecystectomy for acute cholecystitis. Significant nausea and vomiting overnight however this is resolved, doing well, expected postoperative course.
Time Spent
Total Time Spent with Patient (in minutes): 25
Subjective Data
-
Date of Service: February 26, 2024
Interval Events:
No acute events overnight. Slept well. Pain Controlled. Denies Nausea/Vomiting, +bowel function. Tolerating diet.
Objective Data
-
Intake and Output
02/25/24 02/26/24 02/27/24
06:59 06:59 06:59
Intake Total 3010 / 3010
Output Total 150 / 150
Balance 2860 / 2860
Intake:
Oral fluids 960 / 960
IV fluids (Total) 1850 / 1850
Normosol 150 / 150
IV piggybacks 200 / 200
Output:
Emesis 150 / 150
Other:
Number of approximated MODERATE 3
amounts of urine
Number of approximated LARGE 2
amounts of urine
Number of immeasurable emeses? 1
Vital Signs
Temp Pulse Resp BP Pulse Ox
98.3 F 73 16 123/68 95
02/26/24 15:06 02/26/24 15:06 02/26/24 15:06 02/26/24 15:06 02/26/24 15:06
Lab Results
02/26/24 09:08
02/26/24 09:08
Calcium 8.9 mg/dl (8.4-10.2) 02/26/24 09:08
Total Bilirubin 1.0 mg/dl (0.2-1.3) 02/26/24 09:08
Direct Bilirubin 0.2 mg/dl (0.0-0.4) 02/26/24 09:08
AST 57 U/L (14-36) H 02/26/24 09:08
ALT 69 U/L (0-35) H 02/26/24 09:08
Alkaline Phosphatase 80 U/L (38-126) 02/26/24 09:08
Total Protein 6.4 g/dl (6.3-8.2) 02/26/24 09:08
Albumin 4.0 g/dl (3.5-5.0) 02/26/24 09:08
Physical Exam
-
GENERAL/NEURO: Awake, Alert, no distress
CHEST: Unlabored breathing on RA
ABDOMEN: Soft, Non-Tender, Non-Distended, incisions clean dry and intact.
[2024-02-27 09:08] LABS: Glycohemoglobin (HgbA1c) 6.9 % (4.0-5.6)
--- NOTE | 2024-02-29 12:58 | W.DCSUMMARY ---
Discharge Summary
Discharge Data
Date of Admission: 02/25/24
Date of Discharge: 02/29/24
-
Pending Results: No
Hospital Course
68-year-old female who presents with a 1 to 2-day history of postprandial right upper quadrant abdominal pain, in the setting of previous similar attacks in the past. Exam and imaging were consistent with acute calculous cholecystitis and she was
taken to the OR for laparoscopic cholecystectomy which she tolerated well. She was discharged to home once able to tolerate a diet post operatively with good control of pain. Outpatient follow up planned in the coming weeks.
Discharge Plan
-
Patient Disposition: Home (Routine Discharge)
Discharge Diagnosis/Procedures: Acute cholecystitis status post laparoscopic cholecystectomy
Condition: Good
Diet: No restrictions
Activity: No strenuous activity
Driving Restrictions: As prior to admission
Bathing Restrictions: OK to Shower
Activity Restrictions/Additional Instructions:
Instructions following Laparoscopic cholecystectomy
Please call [phone] if you have any questions or concerns after your surgery.
Wound Care:
Your incisions are covered with skin glue which will come off on it�s own in 5-10 days.
It is ok to shower the day after your surgery. Do not scrub the incisions, let soap and water wash over them and pat dry.
� Bruising around your incisions is normal.
� Using ice packs will help minimize this swelling.
� No swimming or soaking incisions for 1 week.
� Your stitches will dissolve and do not need to be removed.
Urinary retention:
If you are unable to urinate 6-8 hours after your surgery, please call [phone] to discuss further management.
Activity:
No heavy lifting more than 15 pounds for the next 3 weeks, then you may gradually lift heavier objects as tolerated by discomfort. Otherwise activity as tolerated by your comfort level.
Pain Management:
Use Tylenol, ibuprofen and ice packs to treat your pain.
� You may take 650 milligrams of Tylenol (Max 3 grams per day) every 6 hours, and 600 mg of ibuprofen also every 6 hours. (you can alternate them every 3 hours)
� You may use an ice pack to your incision as needed.
� If you still have pain not controlled by these measures, take your prescription pain medication as prescribed.
Medications:
You may resume your home medications.
Bowel Medications:
Prescription pain medication can make you constipated. If you take this medication, also take colace 100 mg twice daily (this is over the counter). If this is not sufficient, you may take Miralax (polyethylene glycol) to help move your bowels.
Diet:
After your procedure, there are no dietary restrictions. You may notice loose stools for up to 4 weeks after surgery with fatty meals, if this is the case you may have to adjust your diet as needed.
Driving restrictions:
No driving if you are taking prescription pain medication or if you think your normal reaction time and attentiveness has been slowed by your surgery.
Things to Look out for:
Worsening Abdominal pain, redness or drainage from incision
Call Doctor for:
Please call if you notice worsening redness or drainage from incision(s) lasting longer than 5 days after your surgery, any foul-smelling drainage from the incision, pain not controlled by pain medications, persistent nausea and vomiting, or for any
fevers greater than 101.3 F. The number for questions/concerns is [phone]
Follow-up:
Follow-up appointment will be scheduled with your surgeon in 3-4 weeks. Please call prior to your appointment if you have any questions or concerns. [phone]
Referrals:
Austin Gaspar MD [Active] - in two to four weeks
Sergio Betancourt DO [Non-Admitting Privileges] -
Prescriptions:
New
acetaminophen [acetaminophen] 325 mg tablet
650 mg PO Q6HPRN PRN (Reason: mild pain) Qty: 14 0RF
tramadol 50 mg tablet
25 mg PO Q6HPRN PRN (Reason: severe pain/breakthrough pain) Qty: 8 0RF
ibuprofen 600 mg tablet
600 mg PO Q6H PRN (Reason: pain) Qty: 14 0RF
Continued
metformin 500 MG tablet extended release 24 hr
500 mg PO DAILY
Discharge Orders:
Discharge Patient (As Directed); Ordered 02/26/24
Ordered By: Austin Gaspar
Discharge Date and Time
Discharge Date/Time: 02/26/24 16:36
Print Language: SLOVAK
== END 2024-02-26 16:36 | disposition home or self-care (01) | DRG 419 ==
LOC: 2 SOUTH 04:33
PROVIDERS: Emergency Medicine; ADMITTING PHYSICIAN Internal Medicine; ATTENDING PHYSICIAN Internal Medicine; EMERGENCY PHYSICIAN Emergency Medicine; OTHER PHYSICIAN Surgery
PROC: BF141ZZ Fluoroscopy of Gallbladder, Bile Ducts and Pancreatic Ducts using Low Osmolar Contrast (ICD-10-PCS; 2024-02-25)
PROC: 0FT44ZZ Resection of Gallbladder, Percutaneous Endoscopic Approach (ICD-10-PCS; 2024-02-25)
PROC: 0DNU4ZZ Release Omentum, Percutaneous Endoscopic Approach (ICD-10-PCS; 2024-02-25)
DX: K80.00 Calculus of gallbladder with acute cholecystitis without obstruction (principal); K66.0 Peritoneal adhesions (postprocedural) (postinfection)
CPT/HCPCS: 88304; 74177; 74300; 76000; 80053; 81003; 81015; 82248; 82962; 83036; 83605; 83690; 85025; 93005; 96361; 96374; 96375; 99285; Q9967

== ENCOUNTER → 2024-03-05 12:00 | Outpatient (REF) | payer MEDICARE, SELFPAY | LOC: RADI 12:00 | PROVIDERS: ATTENDING PHYSICIAN Internal Medicine Endocrinology, Diabetes & Metabolism; FAMILY PHYSICIAN Family Medicine | DX: E04.1 Nontoxic single thyroid nodule (principal) | CPT/HCPCS: 88173; 10005 ==

== ENCOUNTER 2024-05-20 11:43 | Emergency (ER) | payer MEDICARE, SELFPAY ==
[2024-05-20 11:47] VITALS: BP 145/81
--- NOTE | 2024-05-20 12:21 | ED.GENMED ---
History of Present Illness
<PHILIPP Cooper Last Filed: 05/20/24 15:07>
General
Chief Complaint: Back Pain
Source: patient
Exam Limitations: none
Time Seen by Provider: 05/20/24 11:55
Nursing documentation reviewed up to this point in time: agreed with
History of Present Illness
History of Present Illness:
Patient is a 68-year-old female with history diabetes, hypertension, past history of uterine CA currently in remission presenting to the emergency department for evaluation of upper back pain since yesterday. Patient reports initially noticed pain
in her upper back, between her shoulder blades, late morning while she was doing her typical daily routines in her house. Pain has been essentially constant since. There may be some mild positional component. Patient denies any clear exertional
or pleuritic component to pain. Patient denies any other associated symptoms including chest pain, shortness of breath, dizziness/lightheadedness, numbness/tingling, fever, or cough. Patient denies any known trauma.
Patient was seen by her primary care provider this morning for evaluation of upper back pain where an EKG was performed. Patient was sent to the emergency department for further evaluations rule out cardiac process
Patient denies any recent travel or recent surgery.
Past History
<PHILIPP Cooper Last Filed: 05/20/24 15:07>
Past History
ED Past Medical History: Cancer (Uterine cancer), NIDDM, Other (Bronchitis, pneumonia, arthritis) and Other (Left jugular DVT from Infusaport along w/ infection from port/line)
ED Past Surgical History: Gynecological (Hysterectomy uterine for CA) and Urological (Bladder lift December 2022); Negative Appendectomy or Bowel resection
Social History
Tobacco: Non-smoker
Alcohol: Occasional
Drug: None
Personal:
Living: with family
Employment: Not employed
Family History
Family History: Hypertension
Review of Systems
<Katlyn Knox PA-C - Last Filed: 05/20/24 15:07>
Review of Systems
Allergies reviewed?: Yes
All Other Systems: ROS reviewed and negative except as documented in HPI and ROS
Phy Exam
<Katlyn Knox PA-C - Last Filed: 05/20/24 15:07>
Physical Exam
Physical Exam:
Vitals: Mildly hypertensive. Otherwise
General: Patient is well appearing, no acute distress
Skin: Warm and dry, no rashes or lesions
Head: Normocephalic, atraumatic
Eyes: Sclera nonicteric. EOMs intact. No nystagmus.
Throat: Protecting airway
Neck: Normal ROM, no cervical spine tenderness, no meningismus
Cardiac: Regular rate and rhythm, no murmurs.
Pulm: Normal respiratory effort, no wheezes, rales, rhonchi heard on exam.
Abdomen: Abdomen soft. No abdominal tenderness.
Back: No midline spinal tenderness. No reproducible mid scapular tenderness. No rash or ecchymoses.
Extremities: No evidence of cyanosis or edema. Great distal pulses
Neuro: AAOx3. CN II-XII intact. No focal neurologic deficits.
Psychiatric: Normal affect.
Scores
<Katlyn Knox PA-C - Last Filed: 05/20/24 15:07>
Heart Score for Chest Pain Patients
STEMI patient?: No
History: Slightly or Non-Suspicious
ECG: Nonspecific Repolarization
Age: >/= 65 years
Risk Factors: 1 or 2 Risk Factors
Troponin: </= Normal Limit
Heart Score for Chest Pain Patients: 4
Heart Score Risk: 20.3% MACE over next 6 weeks
Course
<Katlyn Knox PA-C - Last Filed: 05/20/24 15:07>
Orders/Labs/Results
Orders:
Orders
10/29/24 11:45
Electrocardiogram (*1) Urgent
Reason for Study: Chest Pain
EKG- Treatment ONCE
05/20/24 12:27
Complete Blood Count/With Diff Urgent
Comprehensive Metabolic Panel Urgent
D-Dimer Urgent
Troponin I Urgent
05/20/24 13:10
CT Chest Pe Study Urgent
Comment: hx CA, hx DVT
Reason For Exam: Mid scapular pain
0.9% Sodium Chloride 500 ml [Nss] 500 ml IV BOLUS
05/20/24 12:27
05/20/24 12:27
Vital Signs
Initial and Last Documented VS:
Initial Vital Signs
Temp Pulse Resp BP Pulse Ox
98.0 F 81 18 145/81 98
05/20/24 11:47 05/20/24 11:47 05/20/24 11:47 05/20/24 11:47 05/20/24 11:47
Last Documented Vital Signs
Temp Pulse Resp BP Pulse Ox
98.0 F 81 18 145/81 98
05/20/24 11:47 05/20/24 11:47 05/20/24 11:47 05/20/24 11:47 05/20/24 11:47
<Gabriel Walter MD - Last Filed: 05/20/24 13:22>
Orders/Labs/Results
Orders:
Orders
05/20/24 11:45
Electrocardiogram (*1) Urgent
Reason for Study: Chest Pain
EKG- Treatment ONCE
05/20/24 12:27
Complete Blood Count/With Diff Urgent
Comprehensive Metabolic Panel Urgent
D-Dimer Urgent
Troponin I Urgent
05/20/24 13:10
CT Chest Pe Study Urgent
Comment: hx CA, hx DVT
Reason For Exam: Mid scapular pain
0.9% Sodium Chloride 500 ml [Nss] 500 ml IV BOLUS
05/20/24 12:27
05/20/24 12:27
Vital Signs
Initial and Last Documented VS:
Initial Vital Signs
Temp Pulse Resp BP Pulse Ox
98.0 F 81 18 145/81 98
05/20/24 11:47 05/20/24 11:47 05/20/24 11:47 05/20/24 11:47 05/20/24 11:47
Last Documented Vital Signs
Temp Pulse Resp BP Pulse Ox
98.0 F 81 18 145/81 98
05/20/24 11:47 05/20/24 11:47 05/20/24 11:47 05/20/24 11:47 05/20/24 11:47
<Katlyn Knox PA-C - Last Filed: 05/20/24 15:07>
MDM/Problems Addressed
Differential Diagnosis Includes:
Not limited to: Muscle strain, pericarditis, myocarditis, pneumothorax, pneumonia, PE, ACS, etc.
MDM/Problems Addressed:
68-year-old female presenting with 1 day of constant atraumatic mid scapular pain. There is some some positional component although no clear pleuritic or exertional component to pain. No associated chest pain, shortness of breath, cough, fevers.
No known trauma or inciting injury. Seen by PCP and referred to emergency department for further cardiac workup. Mildly hypertensive, otherwise vital signs are stable. Exam as above. Etiology somewhat broad although considerations include
musculoskeletal etiology versus more serious cardiac/pulmonary etiology. Lower suspicion for infectious cause given patient is afebrile with no other infectious symptoms. EKG initiated in triage which show normal sinus without acute ischemic
changes�some nonspecific T wave flattening in lateral leads. Will obtain basic labs. Given risk factors�will check troponin. Patient without any PE risk factors other than remote cancer history�would consider low risk will screen with D-dimer.
Plan for chest imaging (x-ray vs CTA chest) pending d-dimer. Will closely monitor and reassess
Chronic conditions affecting care:
Hypertension, DM
Acute Exacerbation and/or Progression of Chronic Illness:
Acutely hypertensive
<Katlyn Knox PA-C - Last Filed: 05/20/24 15:07>
*Radiology
Radiology exam reviewed: preliminary read by ED provider and radiology read reviewed
*Pulse Oximetry
Patient hypoxic: no
*EKG
Interpreted by ED Provider?: Yes
EKG Intrepretation Date: 05/20/24
Interpretation: abnormal
Comparison EKG: changes noted
Heart Rate: 71
Rate: normal
Rhythm: sinus
[place]: normal axis
Interval: normal interval
QRS Pattern: normal QRS
Ischemia: non-specific ST changes (Nonspecific T wave flattening in V5/V6 prior)
*Major Appliance Assembly Supervisor Interpretation
Rate: Major Appliance Assembly Supervisor- N/A
*Critical Care Note
Total Time (30-74mins, 75-104mins- exclusive of procedures): Not Applicable
<Katlyn Knox PA-C - Last Filed: 05/20/24 15:07>
Update Note
Update Note:
Update 1:19 PM: Labs noted. No abnormalities. Troponin is undetectable. Given symptoms have been ongoing for the past 24 hours�feel 1 troponin is sufficient to rule out acute AL. D-dimer is negative. Although did speak with attending physician
and given risk factors�will obtain CTA of chest.
Update 2:30 PM: CTA report reviewed. No acute abnormalities. Into reassess patient who remained stable. It is possible this is a musculoskeletal etiology. Low suspicion for acute cardiac/pulmonary emerge process given negative workup. Feel
patient is stable for discharge with return precautions and primary care follow-up. Patient comfortable with plan.
ED Attending Note
<Katlyn Knox PA-C - Last Filed: 05/20/24 15:07>
-
Portions of this chart may have been created with voice recognition software.� Occasional wrong word or��sound alike� substitutions may have occurred due to the inherent limitations of voice recognition software.
<Gabriel Walter MD - Last Filed: 05/20/24 13:22>
ED Attending Note
Patient seen and examined by attending physician: Yes
ED Attending Note:
I have seen and evaluated the patient with a [id number] encounter. I have spoken to the advance practicer provider and involved in the medical history, the physical exam, medical decision making.
Evaluation and management service: agree unless noted differently below.
Results interpretation: agree unless noted differently below.
Focused HPI: 68-year-old female with a past medical history as document presents to the ER for evaluation of scapular pain. Patient reports that she woke up yesterday with pain between her shoulder blades. She describes a constant dull pain that
will occasionally become sharp with certain movements. She denies any associated shortness of breath. She denies any cough, fevers, recent illness. She denies any swelling or pain in the legs. She denies having any similar symptoms in the past.
She denies any known trauma or injury. She was referred by her PCP to be evaluated in the ER. She does have distant history of uterine cancer status post hysterectomy she is in remission for nearly 10 years she says. She does have history of DVT
associated with chemotherapy port; she is no longer on anticoagulation.
Physical exam: Awake alert not in distress. Vital signs normal. She has no cardiac rubs gallops or murmurs. Lungs clear to auscultation bilaterally. She has no point tenderness in the back. No edema in the extremities.
Medical Decision Makin-year-old female presents to the emergency room for evaluation of scapular pain that started yesterday and has been constant. Vitals and exam as above. Sent labs including CBC and CMP. Check troponin and EKG. Check CTA
chest. Reassess after the above.
Discharge Plan
Departure
Patient Disposition: Home (Routine Discharge)
Date of Disposition: 05/20/24
Time of Disposition: 14:44
Patient with high blood pressure during this ER visit?: Yes
Condition: Good
Covid-19: Not Applicable
Discharge Problem:
Upper back pain
Instructions: Upper Back Pain (DC), BLOOD PRESSURE
Prescriptions:
No Action
metformin 500 MG tablet extended release 24 hr
500 mg PO DAILY
acetaminophen [acetaminophen] 325 mg tablet
650 mg PO Q6HPRN PRN (Reason: mild pain) Qty: 14 0RF
tramadol 50 mg tablet
25 mg PO Q6HPRN PRN (Reason: severe pain/breakthrough pain) Qty: 8 0RF
ibuprofen 600 mg tablet
600 mg PO Q6H PRN (Reason: pain) Qty: 14 0RF
Referrals:
Gregg Orosco MD [Active] - As needed
Ann-Marie Betancourt DO [Family Provider] - Follow up in 5-7 days
Activity Restrictions/Additional Instructions:
RETURN TO THE EMERGENCY DEPARTMENT WITH ANY FEVERS, CHEST PAIN, SHORTNESS OF BREATH, LIGHTHEADEDNESS/DIZZINESS, WORSENING IN CURRENT SYMPTOMS, OR ANY OTHER CONCERNS
�You should continue to take Tylenol/Motrin as needed at home for any discomfort. Stable hydrated and get plenty rest.
-Follow-up with your primary care provider for further evaluation/management to ensure that symptoms are improving
-A name for a parking assistant has been provided you above should you need to follow-up with them in the future
Monitor your symptoms closely return to the emergency department any acute worsening/new symptoms
Interventions
Interventions:
*Risk Screen - Suicide Last Done: 05/20/24 11:47
*General Assessment Last Done: 05/20/24 15:04
*Neglect/Abuse Screening Last Done: 05/20/24 11:47
*ED COVID-19 Vaccine History Last Done: 05/20/24 11:47
*Nursing Disposition Last Done: 05/20/24 15:04
ED-Musculoskeletal Assessment Last Done: 05/20/24 13:14
Discharge Date and Time
Print Language: KYRGYZ
[2024-05-20 12:44] LABS: % Basophils 0.8 % (0-2); % Eosinophils 1.2 % (0-6); % Immature Granulocytes 0.4 % (0-0.5); % Lymphocytes 32.6 % (20.5-51.1); % Monocytes 6.6 % (1.7-9.3); % Neutrophils 58.4 % (42.2-75.2); Absolute Basophils 0.1 10^3/uL (0-0.2); Absolute Eosinophils 0.1 10^3/uL (0-0.7); Absolute Lymphocytes 2.4 10^3/uL (1.2-3.4); Absolute Monocytes 0.5 10^3/uL (0.1-0.6); Absolute Neutrophils 4.3 10^3/uL (1.4-6.5); Hematocrit 37.5 % (37.0-47.0); Hemoglobin 12.5 g/dL (12.0-16.0); Mean Corp Hgb Conc. 33.3 g/dL (33.0-37.0); Mean Corpuscular Hgb 29.1 pg (27.0-31.0); Mean Corpuscular Volume 87.4 fL (81.0-99.0); Mean Platelet Volume 9.2 fL (7.4-10.4); Nucleated Red Blood Cells % 0 %; Platelet Count 268 10^3/uL (130-400); Red Blood Cell Count 4.29 10^6/uL (4.20-5.40); Red Cell Dist. Width 12.7 % (11.5-14.5); White Blood Cell Count 7.4 10^3/uL (4.8-10.8)
[2024-05-20 12:56] LABS: D-Dimer 0.35 ug/mlFEU (0.00-0.50)
[2024-05-20 13:01] LABS: ALT (SGPT) 20 U/L (0-35); AST (SGOT) 22 U/L (14-36); Albumin 4.1 g/dl (3.5-5.0); Alkaline Phosphatase 78 U/L (38-126); Blood Urea Nitrogen 14 mg/dl (7-17); Calcium 9.3 mg/dl (8.4-10.2); Carbon Dioxide 29 mmol/L (22-30); Chloride 105 mmol/L (98-107); Glucose 85 mg/dl (70-99); Potassium 4.2 mmol/L (3.5-5.1); Sodium 142 mmol/L (135-145); Total Bilirubin 0.6 mg/dl (0.2-1.3); Total Protein 6.5 g/dl (6.3-8.2); eGFR > 60.00
[2024-05-20 13:11] LABS: Troponin I < 0.012 ng/ml
[2024-05-20] MEDS: NSS 500 IV (13:56)
== END 2024-05-20 15:05 | disposition home or self-care (01) ==
LOC: EMR 11:43
PROVIDERS: Physician Assistant; EMERGENCY PHYSICIAN Emergency Medicine; FAMILY PHYSICIAN Family Medicine
DX: M54.6 Pain in thoracic spine (principal); E11.9 Type 2 diabetes mellitus without complications; I10 Essential (primary) hypertension; Z82.49 Family history of ischemic heart disease and other diseases of the circulatory system; Z85.42 Personal history of malignant neoplasm of other parts of uterus; Z86.718 Personal history of other venous thrombosis and embolism; Z90.49 Acquired absence of other specified parts of digestive tract; Z90.710 Acquired absence of both cervix and uterus
CPT/HCPCS: 99284; 71275; 80053; 84484; 85025; 85379; 93005; Q9967

== ENCOUNTER 2024-07-25 20:58 | Emergency (ER) | payer MEDICARE, SELFPAY ==
[2024-07-25 21:01] VITALS: BP 142/75
--- NOTE | 2024-07-25 21:02 | ED.GENMED ---
ED Provider Triage
<Sudheer Ty PA-C - Last Filed: 07/25/24 21:06>
-
Patient seen by provider in Triage?: Seen in Triage
1hr ago, headache described to be worst headache she has had. Bifrontal headache. No history of migraines. No fevers/vomiting. Patient appears uncomfortable but no meningismus. CT and CTA head/neck ordered. Pt brought directly to CT
History of Present Illness
<Sudheer Ty PA-C - Last Filed: 07/25/24 21:06>
General
Chief Complaint: Headache
Time Seen by Provider: 07/26/24 00:09
<ASHLEY Jaramillo - Last Filed: 07/26/24 02:28>
General
Source: patient
Exam Limitations: none
History of Present Illness
History of Present Illness:
This is a 68 year old female that comes in with c/o headache. States that she started with a fever and then she got a headache behind the eyes, her head and into her jaw. State that her temp was 102 with chills tonight. States that she was
nauseated. Denies any chills, chest pain, SOB, abd pain, vomiting, diarrhea, dizziness, urinary burning.
Past History
<Sudheer Ty PA-C - Last Filed: 07/25/24 21:06>
Past History
ED Past Medical History: Cancer (Uterine cancer), NIDDM, Other (Bronchitis, pneumonia, arthritis) and Other (Left jugular DVT from Infusaport along w/ infection from port/line)
ED Past Surgical History: Gynecological (Hysterectomy uterine for CA) and Urological (Bladder lift December 2022); Negative Appendectomy or Bowel resection
Social History
Tobacco: Non-smoker
Alcohol: Occasional
Drug: None
Personal:
Living: with family
Employment: Not employed
Family History
Family History: Hypertension
<ASHLEY Jaramillo - Last Filed: 07/26/24 02:28>
Past History
ED Past Medical History: Cancer (Uterine cancer with Mets), HTN and Other (Bronchitis, pneumonia, arthritis, back and neck pain, PNA, DVT, )
ED Past Surgical History: Cholecystectomy and Other (cataracts)
Social History
Alcohol: None
Review of Systems
<ASHLEY Jaramillo - Last Filed: 07/26/24 02:28>
Review of Systems
All Other Systems: ROS reviewed and negative except as documented in HPI and ROS
Constitutional: Reports fever; Denies chills
EENT: Reports no symptoms
Respiratory: Reports no symptoms; Denies cough or trouble breathing
Cardiac: Denies chest pain
ABD/GI: Reports nausea; Denies abdominal pain, vomiting or diarrhea
: Reports no symptoms; Denies dysuria, frequency or urgency
Musculoskeletal: Reports no symptoms
Skin: Reports no symptoms
Neurological: Reports headache; Denies dizzy
Psychiatric: Reports no symptoms
Phy Exam
<ASHLEY Jaramillo - Last Filed: 07/26/24 02:28>
General Physical Exam
General Presentation: well appearing and no apparent distress
General age: appears stated age
General Skin: warm and dry
General Habitus: normal
General Mental: alert
General Hydration: appears well hydrated
ENT Exam
ENT Exam: TM's normal, pharynx normal and neck supple
Eye Exam
Eye Exam: EOMI
Cardiovascular Exam
Cardiovascular Exam: regular rate/rhythm and normal peripheral pulses
Pulmonary Exam
Pulmonary Exam: lungs clear, no respiratory distress, no rales, chest non tender, no crackles, no rhonchi, no wheezing and no cough
Gastrointestinal Exam
Gastrointestinal Exam: normal bowel sounds, non tender, soft, no organomegaly, no pulsatile mass and non distended
Musculoskeletal Exam
Musculoskeletal Exam: full ROM and no edema
Skin Exam
Skin Exam: normal color, warm/dry, no rash and no petechia
Psychiatric Exam
Psychiatric Exam: normal mood/affect
Course
<Sudheer Ty PA-C - Last Filed: 07/25/24 21:06>
Orders/Labs/Results
Orders:
Orders
07/25/24 21:04
CT Head & Neck Angio W/wo IV Urgent
Comment:
Reason For Exam: worst headache of life, bi frontal
07/25/24 22:10
Basic Metabolic Panel Urgent
Complete Blood Count/With Diff Urgent
07/26/24 00:26
Acetaminophen [Tylenol] 1,000 mg PO NOW STA
Ketorolac [Toradol] 30 mg IV NOW STA
07/26/24 00:28
COVID-19 Antigen Urgent
Source: Nasal Swab
Influenza A+B Rapid Molecular Urgent
DEONTE Source: Nasal Swab
Specimen Description:
Abnormal Lab Results
07/25/24 07/26/24
22:10 00:28
Abs Immat Gran (auto) 0.1 H 10^3/uL
(0-0.05)
Absolute Lymphs (auto) 0.3 L 10^3/uL
(1.2-3.4)
Immature Gran % 0.7 H %
(0-0.5)
Neutrophils % 87.4 H %
(42.2-75.2)
Lymphocytes % 4.7 L %
(20.5-51.1)
Glucose 162 H mg/dl
(70-99)
SARS-CoV-2 Antigen Positive A
(Negative)
07/25/24 22:10
07/25/24 22:10
Vital Signs
Initial and Last Documented VS:
Initial Vital Signs
Temp Pulse Resp BP Pulse Ox
98.2 F 104 20 142/75 96
07/25/24 21:01 07/25/24 21:01 07/25/24 21:01 07/25/24 21:01 07/25/24 21:01
Last Documented Vital Signs
Temp Pulse Resp BP Pulse Ox
99.1 F 84 14 125/64 96
07/26/24 00:23 07/26/24 01:57 07/26/24 01:57 07/26/24 01:57 07/26/24 01:45
<ASHLEY Jaramillo - Last Filed: 07/26/24 02:28>
Orders/Labs/Results
Orders:
Orders
07/25/24 21:04
CT Head & Neck Angio W/wo IV Urgent
Comment:
Reason For Exam: worst headache of life, bi frontal
07/25/24 22:10
Basic Metabolic Panel Urgent
Complete Blood Count/With Diff Urgent
07/26/24 00:26
Acetaminophen [Tylenol] 1,000 mg PO NOW STA
Ketorolac [Toradol] 30 mg IV NOW STA
07/26/24 00:28
COVID-19 Antigen Urgent
Source: Nasal Swab
Influenza A+B Rapid Molecular Urgent
DEONTE Source: Nasal Swab
Specimen Description:
Abnormal Lab Results
07/25/24 07/26/24
22:10 00:28
Abs Immat Gran (auto) 0.1 H 10^3/uL
(0-0.05)
Absolute Lymphs (auto) 0.3 L 10^3/uL
(1.2-3.4)
Immature Gran % 0.7 H %
(0-0.5)
Neutrophils % 87.4 H %
(42.2-75.2)
Lymphocytes % 4.7 L %
(20.5-51.1)
Glucose 162 H mg/dl
(70-99)
SARS-CoV-2 Antigen Positive A
(Negative)
07/25/24 22:10
07/25/24 22:10
Hyperglycemia. Positive for COVID.
Vital Signs
Initial and Last Documented VS:
Initial Vital Signs
Temp Pulse Resp BP Pulse Ox
98.2 F 104 20 142/75 96
07/25/24 21:01 07/25/24 21:01 07/25/24 21:01 07/25/24 21:01 07/25/24 21:01
Last Documented Vital Signs
Temp Pulse Resp BP Pulse Ox
99.1 F 84 14 125/64 96
07/26/24 00:23 07/26/24 01:57 07/26/24 01:57 07/26/24 01:57 07/26/24 01:45
<ASHLEY Jaramillo - Last Filed: 07/26/24 02:28>
MDM/Problems Addressed
Differential Diagnosis Includes:
COVID, Influenza Headache
MDM/Problems Addressed:
This is a 68 year old female that comes in with c/o fever and then developed a headache. States that she has a temp of 102 at home and then she started with a headache behind the eyes, her head and into her jaw.
Will check labs and get CTA of the head and neck.
Back into see patient. Explained that she has COVID. Reviewed CT scan and explained that she will need to follow up with the PCP for further evaluation. Patient to increase her water intake. Use TYlenol and Ibuprofen for any fever or body aches.
Follow up with the family doctor. Return with any concerns.
Chronic conditions affecting care: DM
Acute Exacerbation and/or Progression of Chronic Illness:
NA
<ASHLEY Jaramillo - Last Filed: 07/26/24 02:28>
*Radiology
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
1.6cm asymmetrically enlarged left level 2 cervical lymph node. Diagnostic possibilities are (1) reactive), all reviewed NAD by ED Provider (CT cont-lymphadenopathy or (2) malignant lymphadenopathy. Moderate discogenic degenerative disease at C5/C7
with small disc-osteophyte complexes causing mild spinal cord compression and central canal stenosis. Head CTA- Chiari I malformation. Very severe hypoplasia of the right intracranial ) and other (CT Cont0 vertebral artery. Congenital aplasia of the
right posterior cerebral artery P1 segment with blood supply to the right posterior cerebral artery though a right posterior ccommunicating artery. Severe hypoplasia of the right anterior cerebral artery A1 segment. )
*Pulse Oximetry
Patient hypoxic: no
*EKG
Interpreted by ED Provider?: NA
Rate: EKG- N/A
*Back Tender Insulation Board Interpretation
Rate: Back Tender Insulation Board- N/A
*Critical Care Note
Total Time (30-74mins, 75-104mins- exclusive of procedures): Not Applicable
ED Attending Note
<Sudheer Ty PA-C - Last Filed: 07/25/24 21:06>
-
Portions of this chart may have been created with voice recognition software.� Occasional wrong word or��sound alike� substitutions may have occurred due to the inherent limitations of voice recognition software.
Discharge Plan
Departure
Patient Disposition: Home (Routine Discharge)
Date of Disposition: 07/26/24
Time of Disposition: 02:14
Patient with high blood pressure during this ER visit?: No
Condition: Good
Covid-19: Confirmed COVID-19
Discharge Problem:
COVID, Headache
Instructions: Headache, Adult (DC), COVID-19 in adults - Discharge instructions
Prescriptions:
No Action
metformin 500 MG tablet extended release 24 hr
500 mg PO DAILY
Referrals:
Ann-Marie Betancourt, [Family Provider] - Follow up in 2-3 days
Activity Restrictions/Additional Instructions:
As discussed, your blood work is normal. Your CT has some lymph node adenopathy that leandra need further evaluation with the family doctor and possible an MRI. Please increase your water intake to 8-8oz glasses daily. Tylenol 1000mg every 6 hours for
headache pain and alternate with Ibuprofen 600mg every 6 hours with food for for fever or headache pain. Please increase your water intake to 8-8oz glasses daily. IF YOU HAVE ANY INCREASED SHORTNESS OF BREATH, OR YOU HAVE ANY OTHER CONCERNS PLEASE
RETURN TO THE EMERGENCY ROOM .
Interventions
Interventions:
*Risk Screen - Suicide Last Done: 07/26/24 00:17
*General Assessment Last Done: 07/25/24 21:01
*Neglect/Abuse Screening Last Done: 07/26/24 00:17
*ED COVID-19 Vaccine History Last Done: 07/26/24 00:17
ED- Neurological Assessment Last Done: 07/26/24 00:24
Discharge Date and Time
Print Language: BENGALI
[2024-07-25 22:19] LABS: % Basophils 0.4 % (0-2); % Eosinophils 0.6 % (0-6); % Immature Granulocytes 0.7 % (0-0.5); % Lymphocytes 4.7 % (20.5-51.1); % Monocytes 6.2 % (1.7-9.3); % Neutrophils 87.4 % (42.2-75.2); Absolute Immature Granulocytes 0.1 10^3/uL (0-0.05); Absolute Lymphocytes 0.3 10^3/uL (1.2-3.4); Absolute Monocytes 0.5 10^3/uL (0.1-0.6); Absolute Neutrophils 6.4 10^3/uL (1.4-6.5); Hemoglobin 12.6 g/dL (12.0-16.0); Mean Corp Hgb Conc. 33.2 g/dL (33.0-37.0); Mean Corpuscular Hgb 29.2 pg (27.0-31.0); Mean Corpuscular Volume 88.2 fL (81.0-99.0); Mean Platelet Volume 8.8 fL (7.4-10.4); Nucleated Red Blood Cells % 0 %; Platelet Count 210 10^3/uL (130-400); Red Blood Cell Count 4.31 10^6/uL (4.20-5.40); Red Cell Dist. Width 12.4 % (11.5-14.5); White Blood Cell Count 7.3 10^3/uL (4.8-10.8)
[2024-07-25 22:38] LABS: Blood Urea Nitrogen 11 mg/dl (7-17); Calcium 9.1 mg/dl (8.4-10.2); Carbon Dioxide 25 mmol/L (22-30); Chloride 100 mmol/L (98-107); Glucose 162 mg/dl (70-99); Sodium 135 mmol/L (135-145); eGFR > 60.00
[2024-07-26 00:09] VITALS: BP 138/56
[2024-07-26 00:17] VITALS: BMI 33.3
--- NOTE | 2024-07-26 00:19 | EDRN ---
Pt took 2 ES tylenol yesterday for chills and temp of 102. Two hours later pt developed headache which she felt in her eyes, jaw and head. Pt has some nausea in the waiting room. No cp, sob, abd pain, vomiting, diarrhea/constipation, urinary
symptoms. Pt adds she also has a cough
[2024-07-26] MEDS: TYLENOL 1000 MG PO (00:33)
[2024-07-26] MEDS: TORADOL 30 MG IV (00:33)
[2024-07-26 00:37] LABS: COVID-19 Antigen Positive (Negative)
[2024-07-26 01:00] VITALS: BP 128/64
[2024-07-26 01:57] VITALS: BP 125/64
== END 2024-07-26 02:43 | disposition home or self-care (01) ==
LOC: EMR 20:58
PROVIDERS: Clinical Nurse Specialist Family Health; Physician Assistant Medical; EMERGENCY PHYSICIAN Emergency Medicine; FAMILY PHYSICIAN Family Medicine
DX: U07.1 COVID-19 (principal); R51.9 Headache, unspecified; E11.65 Type 2 diabetes mellitus with hyperglycemia; Z85.42 Personal history of malignant neoplasm of other parts of uterus; Z86.718 Personal history of other venous thrombosis and embolism; Z90.710 Acquired absence of both cervix and uterus; I10 Essential (primary) hypertension
CPT/HCPCS: 96374; 99284; 70496; 70498; 80048; 85025; 87502; 87811; Q9967

== ENCOUNTER → 2024-10-16 07:00 | Outpatient (REF) | payer OTHER, SELFPAY ==
[2024-10-16 07:44] LABS: % Basophils 0.9 % (0-2); % Eosinophils 2.3 % (0-6); % Immature Granulocytes 0.2 % (0-0.5); % Lymphocytes 30.8 % (20.5-51.1); % Monocytes 6.5 % (1.7-9.3); % Neutrophils 59.3 % (42.2-75.2); Absolute Basophils 0.1 10^3/uL (0-0.2); Absolute Eosinophils 0.1 10^3/uL (0-0.7); Absolute Lymphocytes 1.8 10^3/uL (1.2-3.4); Absolute Monocytes 0.4 10^3/uL (0.1-0.6); Absolute Neutrophils 3.4 10^3/uL (1.4-6.5); Hematocrit 42.3 % (37.0-47.0); Hemoglobin 13.6 g/dL (12.0-16.0); Mean Corp Hgb Conc. 32.2 g/dL (33.0-37.0); Mean Corpuscular Hgb 29.4 pg (27.0-31.0); Mean Corpuscular Volume 91.6 fL (81.0-99.0); Mean Platelet Volume 9.4 fL (7.4-10.4); Nucleated Red Blood Cells % 0 %; Platelet Count 264 10^3/uL (130-400); Red Blood Cell Count 4.62 10^6/uL (4.20-5.40); Red Cell Dist. Width 12.8 % (11.5-14.5); White Blood Cell Count 5.7 10^3/uL (4.8-10.8)
[2024-10-16 08:22] LABS: ALT (SGPT) 25 U/L (0-35); AST (SGOT) 24 U/L (14-36); Albumin 4.2 g/dl (3.5-5.0); Alkaline Phosphatase 65 U/L (38-126); Blood Urea Nitrogen 20 mg/dl (7-17); Carbon Dioxide 30 mmol/L (22-30); Chloride 107 mmol/L (98-107); Glucose 116 mg/dl (70-99); HDL Cholesterol 77 mg/dl; LDL Cholesterol, Calculated 89 mg/dl; Potassium 4.5 mmol/L (3.5-5.1); Sodium 143 mmol/L (135-145); Total Bilirubin 1.1 mg/dl (0.2-1.3); Total Cholesterol 184 mg/dl (50-199); Total Protein 6.8 g/dl (6.3-8.2); Triglyceride 90 mg/dl (10-149); Very Low Density Lipoprotein 18 mg/dl (0-30); eGFR > 60.00
[2024-10-16 10:19] LABS: Glycohemoglobin (HgbA1c) 6.4 % (4.0-5.6)
== END ==
LOC: REG 07:00
DX: E78.5 Hyperlipidemia, unspecified (principal); E11.69 Type 2 diabetes mellitus with other specified complication; E11.65 Type 2 diabetes mellitus with hyperglycemia; F41.9 Anxiety disorder, unspecified; Z00.00 Encounter for general adult medical examination without abnormal findings
CPT/HCPCS: 36415; 80053; 80061; 83036; 85025

== ENCOUNTER 2025-01-08 15:51 | Emergency (ER) | payer OTHER, SELFPAY ==
[2025-01-08 16:00] VITALS: BP 110/72
[2025-01-08 18:02] LABS: % Basophils 0.8 % (0-2); % Eosinophils 2.7 % (0-6); % Immature Granulocytes 0.4 % (0-0.5); % Lymphocytes 34.9 % (20.5-51.1); % Monocytes 5.5 % (1.7-9.3); % Neutrophils 55.7 % (42.2-75.2); Absolute Basophils 0.1 10^3/uL (0-0.2); Absolute Eosinophils 0.2 10^3/uL (0-0.7); Absolute Lymphocytes 2.7 10^3/uL (1.2-3.4); Absolute Monocytes 0.4 10^3/uL (0.1-0.6); Absolute Neutrophils 4.4 10^3/uL (1.4-6.5); Hematocrit 37.4 % (37.0-47.0); Hemoglobin 12.4 g/dL (12.0-16.0); Mean Corp Hgb Conc. 33.2 g/dL (33.0-37.0); Mean Corpuscular Hgb 29.8 pg (27.0-31.0); Mean Corpuscular Volume 89.9 fL (81.0-99.0); Mean Platelet Volume 9.5 fL (7.4-10.4); Nucleated Red Blood Cells % 0 %; Platelet Count 243 10^3/uL (130-400); Red Blood Cell Count 4.16 10^6/uL (4.20-5.40); Red Cell Dist. Width 12.8 % (11.5-14.5); White Blood Cell Count 7.8 10^3/uL (4.8-10.8)
[2025-01-08 18:24] LABS: ALT (SGPT) 19 U/L (0-35); AST (SGOT) 21 U/L (14-36); Alkaline Phosphatase 67 U/L (38-126); Blood Urea Nitrogen 19 mg/dl (7-17); Calcium 9.7 mg/dl (8.4-10.2); Carbon Dioxide 29 mmol/L (22-30); Chloride 107 mmol/L (98-107); Glucose 102 mg/dl (70-99); Potassium 4.5 mmol/L (3.5-5.1); Sodium 140 mmol/L (135-145); Total Bilirubin 0.7 mg/dl (0.2-1.3); Total Protein 6.5 g/dl (6.3-8.2); eGFR > 60.00
[2025-01-08 18:40] LABS: C-Reactive Protein < 5.00 mg/L (0.0-10.00)
--- NOTE | 2025-01-08 18:52 | ED.GENMED ---
History of Present Illness
General
Chief Complaint: Visual Problem
Time Seen by Provider: 01/08/25 17:22
History of Present Illness
History of Present Illness:
69-year-old female presents to the emergency department for evaluation of abrupt onset of left eye vision loss that began earlier this afternoon while she was out at the store. Symptoms lasted 10 to 15 minutes before resolving. She notes that
there was a development of a headache on the left side of the head shortly thereafter that is also since resolved. Has never had similar symptoms. Also reports she may have glass in the bottom of her foot. Denies any current speech problems,
extremity paresthesias, chest pain, or shortness of breath.
Past History
Past History
ED Past Medical History: Cancer (Uterine cancer with Mets), HTN, NIDDM, Other (Bronchitis, pneumonia, arthritis, back and neck pain, PNA, DVT, ) and Other (Left jugular DVT from [place] along w/ infection from port/line)
ED Past Surgical History: Cholecystectomy, Gynecological (Hysterectomy uterine for CA), Urological (Bladder lift December 2022) and Other (cataracts); Negative Appendectomy or Bowel resection
Social History
Tobacco: Non-smoker
Alcohol: None
Drug: None
Personal:
Living: with family
Employment: Not employed
Family History
Family History: Hypertension
Review of Systems
Review of Systems
Allergies reviewed?: Yes
All Other Systems: ROS reviewed and negative except as documented in HPI and ROS
Phy Exam
Physical Exam
Physical Exam:
GEN: Well appearing, NAD, WDWN
HEENT: Oral mucosa moist, no scleral icterus, no nasal congestion. No carotid bruit bilat, no temporal artery tenderness bilat
Cardiac: Regular rate and rhythm no murmur
Lung: No respiratory distress, no tachypnea, lungs CTAB
MSK: No gross deformity or injuries
Skin: Good color, no pallor or jaundice, no rashes
Neuro: AO x3; CN II-XII grossly intact. BUE strength 5/5 in all palma, sensation intact and symmetric. BLE strength 5/5 in all palma, sensation intact and symmetric
Psych: Calm, cooperative
Course
Orders/Labs/Results
Orders:
Orders
01/08/25 17:37
Electrocardiogram (*1) Urgent
Reason for Study: TIA/Stroke
CT Head & Neck Angio W/wo IV Urgent
Comment:
Reason For Exam: L amaurosis fugax
EKG- Treatment ONCE
01/08/25 17:42
CRP [C-Reactive Protein] Urgent
Complete Blood Count/With Diff Urgent
Comprehensive Metabolic Panel Urgent
01/08/25 20:30
Aspirin 325 mg PO NOW STA
Clopidogrel Bisulfate [Plavix] 300 mg PO NOW STA
Abnormal Lab Results
01/08/25
17:42
RBC 4.16 L 10^6/uL
(4.20-5.40)
BUN 19 H mg/dl
(7-17)
Glucose 102 H mg/dl
(70-99)
01/08/25 17:42
01/08/25 17:42
Vital Signs
Initial and Last Documented VS:
Initial Vital Signs
Temp Pulse Resp BP Pulse Ox
98.1 F 75 18 110/72 98
01/08/25 16:00 01/08/25 16:00 01/08/25 16:00 01/08/25 16:00 01/08/25 16:00
Last Documented Vital Signs
Temp Pulse Resp BP Pulse Ox
98.1 F 75 18 110/72 98
01/08/25 16:00 01/08/25 16:00 01/08/25 16:00 01/08/25 16:00 01/08/25 18:54
MDM/Problems Addressed
MDM/Problems Addressed:
69-year-old female presents for transient vision loss to the left eye. Workup is grossly unremarkable and she has no further neurologic symptoms in the emergency department nevertheless this is concerning for TIA any assistance 4. We discussed all
the risk and benefit of discharge at this time and at this point the patient is adamant that she cannot stay overnight. We will start her on loading dose of dual antiplatelets and prescribe dual antiplatelets for the next 21 days. I did discuss
case with neurology who again supports the idea of admission however at this time the patient is not willing. Encouraged her to follow-up with her primary care physician to discuss MRI and echocardiogram as an outpatient and ED return parameters
are discussed
Comment
Comment:
EKG independently interpreted by me shows normal sinus rhythm at a rate of [address] changes concerning for ischemia
*Pulse Oximetry
SaO2: 98
Oxygen Mode of Delivery: Room air
Patient hypoxic: no
*Critical Care Note
Total Time (30-74mins, 75-104mins- exclusive of procedures): Not Applicable
ED Attending Note
-
Portions of this chart may have been created with voice recognition software.� Occasional wrong word or��sound alike� substitutions may have occurred due to the inherent limitations of voice recognition software.
Discharge Plan
Departure
Patient Disposition: Home (Routine Discharge)
Date of Disposition: 01/08/25
Time of Disposition: 20:30
Patient with high blood pressure during this ER visit?: No
Discharge Problem:
Amaurosis fugax of left eye
Instructions: Transient Ischemic Attack ED
Prescriptions:
New
aspirin 81 mg capsule
81 mg PO DAILY Qty: 30 0RF
clopidogrel [Plavix] 75 mg tablet
75 mg PO DAILY Qty: 21 0RF
No Action
metformin 500 MG tablet extended release 24 hr
500 mg PO DAILY
Referrals:
Felipe Seals MD [Active, Cardiology]
Ann-Marie Betancourt DO [Family Provider, Family Practice]
Activity Restrictions/Additional Instructions:
As we discussed the symptoms are most likely due to a brief abruption of blood flow to your left eye. This is concerning for a localized stroke to the eye. We recommended admission however due to social concerns you have opted to be discharged
home. Please advise that we will recommend starting you on blood thinners which have been prescribed to you. You will take aspirin and Plavix together for the next 3 weeks and then aspirin alone. You also will need to follow-up with your primary
care physician to discuss an MRI as well as echocardiogram of your heart. Please also schedule a follow-up with the event executive listed on your paperwork
Interventions
Interventions:
*Risk Screen - Suicide Last Done: 01/08/25 16:00
*General Assessment Last Done: 01/08/25 16:00
*Neglect/Abuse Screening Last Done: 01/08/25 16:00
*ED COVID-19 Vaccine History Last Done: 01/08/25 16:00
ED- Neurological Assessment Last Done: 01/08/25 17:00
ED Swallowing Screen Last Done: 01/08/25 17:00
Discharge Date and Time
Print Language: ALBANIAN
[2025-01-08] MEDS: ASPIRIN 325 MG PO (20:37)
[2025-01-08] MEDS: PLAVIX 300 MG PO (20:37)
== END 2025-01-08 20:44 | disposition home or self-care (01) ==
LOC: EMR 15:51
PROVIDERS: Physician Assistant; EMERGENCY PHYSICIAN Emergency Medicine; FAMILY PHYSICIAN Family Medicine
DX: G45.3 Amaurosis fugax (principal); I10 Essential (primary) hypertension; E11.9 Type 2 diabetes mellitus without complications; Z82.49 Family history of ischemic heart disease and other diseases of the circulatory system; Z85.42 Personal history of malignant neoplasm of other parts of uterus; Z86.718 Personal history of other venous thrombosis and embolism; Z90.49 Acquired absence of other specified parts of digestive tract; Z90.710 Acquired absence of both cervix and uterus
CPT/HCPCS: 99284; 70496; 70498; 80053; 85025; 86140; 93005; Q9967

== ENCOUNTER 2025-01-13 10:37 | Emergency (ER) | payer OTHER, SELFPAY ==
[2025-01-13 10:50] VITALS: BP 107/54
--- NOTE | 2025-01-13 12:30 | ED.GENMED ---
History of Present Illness
General
Chief Complaint: Visual Problem
Time Seen by Provider: 01/13/25 12:29
History of Present Illness
History of Present Illness:
TIME OF INITIAL EVALUATION
- 12:30 PM
REVIEW OF OLD RECORDS
- The patient has history of DVT related to a port, high blood pressure, cataracts, metastatic uterine cancer. The patient was seen here 5 days ago with abrupt onset left eye vision loss that lasted for about 10 to 15 minutes. Review of old
records indicates that the patient was placed on DAPT x 3 weeks. 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
stable.
Note:
CHIEF COMPLAINT(S)
Transient visual disturbance in the left eye.
HISTORY OF PRESENT ILLNESS
The patient is a 69-year-old female who presents with a chief complaint of a transient visual disturbance in the left eye. Five days ago, she experienced a complete loss of vision in her left eye for approximately 10-15 minutes, during which she
could not see lights or recognize people. This episode was accompanied by a mild headache. She does not recall any other associated symptoms since the episode, reporting only a sensation of dryness in her eyes without further loss of vision. She
uses glasses for reading small print. The patient has not experienced any further episodes since then.
Her medications include clopidogrel (Plavix) and aspirin, which she is advised to continue taking for three weeks and then to continue aspirin as directed. No acute abdominal or chest pain is reported. Physical examination during this visit reveals
visual acuity of approximately 20/30 in each eye with no other adverse findings. Coordination tests are normal, as are the peripheral visual palma. The cardiac examination shows a normal rhythm.
The patient is concerned about the timeliness of follow-up imaging, specifically an MRI and echocardiogram, which her primary provider at [facility] mentioned might be necessary. However, both tests are typically outpatient procedures.
PHYSICAL EXAM
- Vision: Approximately 20/30 bilaterally.
- Neurological: Normal coordination and visual palma; no signs of acute stroke, no field cuts, NIHSS equals 0
- Cardiovascular: Normal heart rhythm, no arrhythmias detected.
- General: Well appearing in no distress
- HEENT: Moist oral mucosa
- Pulmonary: No respiratory distress, breath sounds are clear and equal
- Abdomen: Soft with no peritoneal signs, no tenderness
- Psychiatric: Appropriate mental status, normal insight and judgement
- Extremities: Nontender, no edema, moves all extremities equally
- Skin: No rash, no lesions
PLAN
Notify the cardiology and neurology departments to arrange outpatient follow-up as necessary for further imaging studies, including MRI and echocardiogram.
DIFFERENTIAL DIAGNOSIS
The Differential Diagnosis includes, in no particular order and is not limited to:
- Transient ischemic attack
- Retinal artery occlusion
- Migraine with aura
- Amaurosis fugax
- Posterior vitreous detachment
- Central retinal vein occlusion
- Glaucoma
- Ocular surface disease
- Hypertensive retinopathy
- Retinal detachment
RADIOLOGY
- No clear indication for emergent imaging at this time
EKG
- I reviewed the EKG from 5 days ago which confirmed that she was in sinus rhythm and she currently has a regular rhythm on auscultation
LABS
- Considered labs however they were performed 5 days ago and were unremarkable
UPDATE
- I sent this message to Dr. Alvarez and Dr. Medina: 'Seen in our ED 5d ago dx'd w/ amaurosis fugax left eye (symptoms lasted for 10-15 minutes and resolved spontaneously). At that time, she had a relatively unremarkable CTA H/N, but showed a
stable severely hypoplastic right Vert A and absent R P1 segment. Was offered to stay in hospital for MRI/echo, but she had to leave to care for her mother. She was placed on 3wks of DAPT. [facility] further as care was performed at [place]. 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 She had no further symptoms over the last 4d. Dr. Medina: Could you arrange for outpt echo. Dr. Alvarez: Do you recommend she stay in the hospital for these studies
(neuro was notified last week who supported admission - I think Doritar was on but not noted in the chart)?'
Dr. Medina recommends outpatient echo and she can call his office; Dr. Alvarez agrees that there is no clear indication for MRI as an inpatient but she should follow-up with Dr. Ryan as an outpatient.
SUMMARY OF ENCOUNTER
The patient was seen in the emergency department due to concerns regarding a transient visual disturbance. The emergency departments involvement included discussions with cardiology and neurology to determine the appropriate setting for imaging.
Despite previous recommendations for possible inpatient monitoring, the current consensus, based on conversations with specialists, is to proceed with MRI and echocardiographic studies as outpatient given the low likelihood of altering current
treatment management. The patient is already on optimal medication therapy with clopidogrel and aspirin, minimizing immediate risks of events such as strokes. The decision was made to focus on outpatient follow-up for further diagnostic imaging
necessary to exclude potential cardiovascular or neurological causes.
DISPOSITION
The patient will be discharged with plans for outpatient follow-up for further imaging studies.
MANAGEMENT OF THE PATIENTS CARE WAS DISCUSSED WITH
Cardiology and neurology departments were consulted to determine the necessity and setting for further imaging. It was agreed to proceed with outpatient management per specialist recommendations.
FOLLOW-UP INSTRUCTIONS
The patient will receive contact information for cardiologists and specialists for scheduling outpatient MRI and echocardiogram. They are to follow up with Dr. Medina and potentially with Dr. Ryan for continued outpatient care.
MEDICAL DECISION MAKING
1. Number & Complexity of Problems: Transient visual disturbance with concerns for potential transient ischemic attack or other neurological or cardiovascular causes.
2. Risk: The patient is currently managed with medication to prevent further ischemic events. Outpatient management is determined appropriate due to stable condition and optimal medication therapy.
3. Data Reviewed: Conversations with cardiology and neurology to finalize management plan based on risk-benefit analysis of inpatient versus outpatient imaging.
PATHOLOGIES TO CONSIDER
- Transient ischemic attack
- Retinal artery occlusion
- Amaurosis fugax
- Cardiac events (structural heart abnormalities, e.g., patent foramen ovale)
Past History
Past History
ED Past Medical History: Cancer (Uterine cancer with Mets), HTN, NIDDM, Other (Bronchitis, pneumonia, arthritis, back and neck pain, PNA, DVT, ) and Other (Left jugular DVT from [place] along w/ infection from port/line)
ED Past Surgical History: Cholecystectomy, Gynecological (Hysterectomy uterine for CA), Urological (Bladder lift December 2022) and Other (cataracts); Negative Appendectomy or Bowel resection
Social History
Tobacco: Non-smoker
Alcohol: None
Drug: None
Personal:
Living: with family
Employment: Not employed
Family History
Family History: Hypertension
Phy Exam
Physical Exam
Physical Exam:
See HPI
Course
Vital Signs
Initial and Last Documented VS:
Initial Vital Signs
Temp Pulse Resp BP Pulse Ox
36.9 C 67 16 107/54 99
01/13/25 10:50 01/13/25 10:50 01/13/25 10:50 01/13/25 10:50 01/13/25 10:50
Last Documented Vital Signs
Temp Pulse Resp BP Pulse Ox
36.9 C 67 16 107/54 99
01/13/25 10:50 01/13/25 10:50 01/13/25 10:50 01/13/25 10:50 01/13/25 12:33
*Pulse Oximetry
SaO2: 99
Oxygen Mode of Delivery: Room air
Patient hypoxic: no
*Critical Care Note
Total Time (30-74mins, 75-104mins- exclusive of procedures): Not Applicable
ED Attending Note
-
Portions of this chart may have been created with voice recognition software.� Occasional wrong word or��sound alike� substitutions may have occurred due to the inherent limitations of voice recognition software.
Discharge Plan
Departure
Patient Disposition: Home (Routine Discharge)
Date of Disposition: 01/13/25
Time of Disposition: 12:58
Patient with high blood pressure during this ER visit?: Yes
Discharge Problem:
Amaurosis fugax of left eye
Prescriptions:
No Action
metformin 500 MG tablet extended release 24 hr
500 mg PO DAILY
aspirin 81 mg capsule
81 mg PO DAILY Qty: 30 0RF
clopidogrel [Plavix] 75 mg tablet
75 mg PO DAILY Qty: 21 0RF
Referrals:
Riley Medina MD [Active, Cardiology]
Cristal Ryan MD [Non-Admitting Privileges, Neurology]
Ann-Marie Betancourt DO [Family Provider, Family Practice]
Activity Restrictions/Additional Instructions:
I discussed case with Dr. George his office to arrange for outpatient echo. I also spoke to Dr. Alvarez who recommends that you follow-up with the neurologist Dr. Ryan and she may be able to arrange for MRI as an outpatient if she feels
this is necessary. I am giving you a copy of your CAT scan report to take with you.
Interventions
Interventions:
*Risk Screen - Suicide Last Done: 01/13/25 10:51
*General Assessment Last Done: 01/13/25 13:00
*Neglect/Abuse Screening Last Done: 01/13/25 10:51
*ED- Fall Risk Assessment Last Done: 01/13/25 13:00
*ED COVID-19 Vaccine History Last Done: 01/13/25 13:00
ED- Neurological Assessment Last Done: 01/13/25 13:00
ED-EENT Assessment Last Done: 01/13/25 13:00
ED Swallowing Screen Last Done: 01/13/25 13:00
Discharge Date and Time
Print Language: TANZANIAN
[2025-01-13 13:00] VITALS: BP 131/85; BMI 25.0
== END 2025-01-13 13:23 | disposition home or self-care (01) ==
LOC: EMR 10:37
PROVIDERS: EMERGENCY PHYSICIAN Emergency Medicine; FAMILY PHYSICIAN Family Medicine
DX: G45.3 Amaurosis fugax (principal); I10 Essential (primary) hypertension; C79.9 Secondary malignant neoplasm of unspecified site; E11.36 Type 2 diabetes mellitus with diabetic cataract; M19.90 Unspecified osteoarthritis, unspecified site; Z85.42 Personal history of malignant neoplasm of other parts of uterus; Z87.01 Personal history of pneumonia (recurrent); Z86.718 Personal history of other venous thrombosis and embolism; Z79.02 Long term (current) use of antithrombotics/antiplatelets; Z79.82 Long term (current) use of aspirin; Z90.49 Acquired absence of other specified parts of digestive tract; Z88.1 Allergy status to other antibiotic agents; Z91.040 Latex allergy status; Z88.2 Allergy status to sulfonamides; Z91.048 Other nonmedicinal substance allergy status
CPT/HCPCS: 99282

== ENCOUNTER 2025-01-27 12:07 | Emergency (ER) | payer OTHER, SELFPAY ==
[2025-01-27 12:20] VITALS: BP 114/63
[2025-01-27 15:10] VITALS: BMI 30.1
[2025-01-27 15:12] VITALS: BP 103/54
--- NOTE | 2025-01-27 16:19 | ED.SKININJ ---
HPI-Injury
General
Chief Complaint: Eye Problems
Source: patient
Exam Limitations: none
Time Seen by Provider: 01/27/25 15:30
Nursing documentation reviewed up to this point in time: agreed with
History of Present Illness-Injury
Initial Injury comments:
The patient is a 69-year-old female who presented with an injury to her right eye. The injury occurred 4.5 hours ago at home while she was weed whacking, , and a rock hit her eye as she was not wearing safety glasses. The patient reports no changes
in vision but describes the pain 6/10 The eye feels bruised, with no accompanying headache, nausea, or vomiting. Upon examination, there was no sign of a foreign body, and the injury was diagnosed as a subconjunctival hemorrhage. The patient was
previously treated for an eye issue on February 07 related to a stroke in the same eye, presenting with blurry and glassy vision. She is on Metformin 500 mg once daily and has been instructed to follow up with an reservationist due to changes in
healthcare providers.
Past History
Past History
ED Past Medical History: Cancer (Uterine cancer with Mets), HTN, NIDDM, Other (Bronchitis, pneumonia, arthritis, back and neck pain, PNA, DVT, ) and Other (Left jugular DVT from [place] along w/ infection from port/line)
ED Past Surgical History: Cholecystectomy, Gynecological (Hysterectomy uterine for CA), Urological (Bladder lift December 2022) and Other (cataracts); Negative Appendectomy or Bowel resection
Social History
Tobacco: Non-smoker
Alcohol: None
Drug: None
Personal:
Living: with family
Employment: Not employed
Family History
Family History: Hypertension
Review of Systems
Review of Systems
Allergies reviewed?: Yes
All Other Systems: ROS reviewed and negative except as documented in HPI and ROS
EENT: Reports other (No change in vision, redness lateral aspect of left eye)
ABD/GI: Denies nausea
Neurological: Denies headache
Phy Exam
Physical Exam
Physical Exam:
GENERAL: No acute distress. A&Ox3.
CONSTITUTIONAL: Afebrile.
EYES: clear, cornea clear, PERRL, EOMs intact, there is a moderate-sized left lateral conjunctival hemorrhage. Pressure in the eye was measured with the tonometer and is 4 mm of
ENMT: moist mucus membranes, Pharynx nl
RESPIRATORY: Regular respirations, nonlabored, lungs clear.
CARDIOVASCULAR: Regular rate and rhythm, no murmurs, no rubs.
GI: Soft, nontender, normal BS
MUSCULOSKELETAL: Moves with ease. Well perfused.
SKIN: Warm, dry, pink
PSYCH: Normal mood and affect. Well kept, interactive and appropriate
NEUROLOGIC: Awake, alert and oriented. No focal neurological deficits
Course
Orders/Labs/Results
Orders:
Orders
01/27/25 15:30
Visual Acuity- Treatment ONCE
Proparacaine [Alcaine 0.5% Eye Drops] See Dose Instructions OPHTH ONCE ONE
Vital Signs
Initial and Last Documented VS:
Initial Vital Signs
Temp Pulse Resp BP Pulse Ox
98 F 83 16 114/63 98
01/27/25 12:20 01/27/25 12:20 01/27/25 12:20 01/27/25 12:20 01/27/25 12:20
Last Documented Vital Signs
Temp Pulse Resp BP Pulse Ox
98 F 70 18 103/54 99
01/27/25 12:20 01/27/25 15:12 01/27/25 15:12 01/27/25 15:12 01/27/25 16:20
MDM/Problems Addressed
MDM/Problems Addressed:
The patient is a 69-year-old female who presented with an injury to her right eye. The injury occurred 4.5 hours ago at home while she was weed whacking, , and a rock hit her eye as she was not wearing safety glasses. The patient reports no changes
in vision but describes the pain 6/10 The eye feels bruised, with no accompanying headache, nausea, or vomiting.
She's had none of the 'glassy, blurry' vision she had on previous two visits.
Upon examination, there was no sign of a foreign body, and the injury was diagnosed as a subconjunctival hemorrhage. The patient was previously treated for an eye issue on 01/08 and again on 01/13 and diagnosed with Amaurosis fugax in the same eye,
started on Plavix, told to f/u with neuro for MRI and cardiac for echocardiogram.
Patient states she followed up as directed by her ER doctor with her new primary care doctor as her doctor in [place] was too far. She got a new family doctor yesterday at [facility] and saw Dr. Ramos's PA yesterday who told her
she was waiting to get records back from [place] and they are planning the f/u with MRI and echocardiogram
*Pulse Oximetry
SaO2: 99
Oxygen Mode of Delivery: Room air
Patient hypoxic: not evaluated
*Critical Care Note
Total Time (30-74mins, 75-104mins- exclusive of procedures): Not Applicable
ED Attending Note
-
Portions of this chart may have been created with voice recognition software.� Occasional wrong word or��sound alike� substitutions may have occurred due to the inherent limitations of voice recognition software.
Discharge Plan
Departure
Patient Disposition: Home (Routine Discharge)
Date of Disposition: 01/27/25
Time of Disposition: 16:15
Patient with high blood pressure during this ER visit?: No
Condition: Good
Discharge Problem:
Subconjunctival hemorrhage, traumatic
Instructions: Subconjunctival Hemorrhage
Prescriptions:
No Action
metformin 500 MG tablet extended release 24 hr
500 mg PO DAILY
aspirin 81 mg capsule
81 mg PO DAILY Qty: 30 0RF
clopidogrel [Plavix] 75 mg tablet
75 mg PO DAILY Qty: 21 0RF
Referrals:
Galiani,Shayan L., MD [Active, Ophthalmology] - Next open appointment
Ann-Marie Betancourt DO [Family Provider, Family Practice]
Activity Restrictions/Additional Instructions:
As we discussed, call the eye doctors office today and make an appointment for sometime this week or next week. Especially since you should be checked after your previous eye problem on 01/13.
Cool compress to the eye 15 minutes off and on today and tomorrow as much as you can
Wear protective lenses at all times when doing yard work
Interventions
Interventions:
*Risk Screen - Suicide Last Done: 01/27/25 12:20
*General Assessment Last Done: 01/27/25 15:10
*Neglect/Abuse Screening Last Done: 01/27/25 12:20
*ED- Fall Risk Assessment Last Done: 01/27/25 15:10
*ED COVID-19 Vaccine History Last Done: 01/27/25 15:10
*Nursing Disposition Last Done: 01/27/25 16:25
Discharge Date and Time
Discharge Date/Time: 01/27/25 16:26
Print Language: ECUADOREAN
== END 2025-01-27 16:26 | disposition home or self-care (01) ==
LOC: EMR 12:07
PROVIDERS: EMERGENCY PHYSICIAN Emergency Medicine; FAMILY PHYSICIAN Family Medicine
DX: H11.30 Conjunctival hemorrhage, unspecified eye (principal); W22.09XA Striking against other stationary object, initial encounter; I10 Essential (primary) hypertension; E11.9 Type 2 diabetes mellitus without complications; M19.90 Unspecified osteoarthritis, unspecified site; Z79.02 Long term (current) use of antithrombotics/antiplatelets; Z82.49 Family history of ischemic heart disease and other diseases of the circulatory system; Z85.42 Personal history of malignant neoplasm of other parts of uterus; Z86.718 Personal history of other venous thrombosis and embolism; Z86.73 Personal history of transient ischemic attack (TIA), and cerebral infarction without residual deficits; Z90.49 Acquired absence of other specified parts of digestive tract; Z90.710 Acquired absence of both cervix and uterus
CPT/HCPCS: 99282

== ENCOUNTER → 2025-02-12 10:02 | Outpatient (REF) | payer OTHER, SELFPAY | LOC: RCS 10:02 | PROVIDERS: ATTENDING PHYSICIAN Nurse Practitioner Family | DX: H53.9 Unspecified visual disturbance (principal) | CPT/HCPCS: 93306 ==

== ENCOUNTER → 2025-03-05 07:25 | Outpatient (REF) | payer OTHER, SELFPAY ==
[2025-03-05 09:30] LABS: HDL Cholesterol 74 mg/dl; LDL Cholesterol, Calculated 109 mg/dl; Very Low Density Lipoprotein 14 mg/dl (0-30)
[2025-03-05 09:53] LABS: LDL Cholesterol, Direct 84 mg/dl
== END ==
LOC: REG 07:25
PROVIDERS: ATTENDING PHYSICIAN Internal Medicine Cardiovascular Disease; FAMILY PHYSICIAN Nurse Practitioner Family
DX: G45.3 Amaurosis fugax (principal)
CPT/HCPCS: 36415; 80061; 83718; 83721

== ENCOUNTER → 2025-06-01 06:49 | Outpatient (REF) | payer OTHER, SELFPAY ==
[2025-06-01 08:28] LABS: Hematocrit 37.8 % (37.0-47.0); Hemoglobin 12.3 g/dL (12.0-16.0); Mean Corp Hgb Conc. 32.5 g/dL (33.0-37.0); Mean Corpuscular Volume 91.3 fL (81.0-99.0); Platelet Count 261 10^3/uL (130-400); Red Cell Dist. Width 12.6 % (11.5-14.5)
[2025-06-01 08:42] LABS: ALT (SGPT) 30 U/L (0-35); AST (SGOT) 31 U/L (14-36); Albumin 4.1 g/dl (3.5-5.0); Alkaline Phosphatase 84 U/L (38-126); Blood Urea Nitrogen 13 mg/dl (7-17); Calcium 9.3 mg/dl (8.4-10.2); Carbon Dioxide 30 mmol/L (22-30); Chloride 102 mmol/L (98-107); Glucose 91 mg/dl (70-99); HDL Cholesterol 70 mg/dl; Sodium 139 mmol/L (135-145); Total Protein 7.0 g/dl (6.3-8.2); Very Low Density Lipoprotein 20 mg/dl (0-30); eGFR > 60.00
[2025-06-01 08:52] LABS: LDL Cholesterol, Calculated 69 mg/dl; Potassium 4.6 mmol/L (3.5-5.1)
[2025-06-01 09:18] LABS: Glycohemoglobin (HgbA1c) 6.1 % (4.0-5.9)
[2025-06-01 12:11] LABS: Nucleated Red Blood Cells % 0 %
== END ==
LOC: REG 06:49
PROVIDERS: ATTENDING PHYSICIAN Nurse Practitioner Family
DX: E04.1 Nontoxic single thyroid nodule (principal)
CPT/HCPCS: 36415; 80053; 80061; 83036; 84443; 85025; 86376

== ENCOUNTER 2025-07-08 17:24 | Emergency (ER) | payer OTHER, SELFPAY ==
[2025-07-08 17:34] VITALS: BP 129/55
[2025-07-08 17:56] LABS: Hematocrit 36.9 % (37.0-47.0); Hemoglobin 12.0 g/dL (12.0-16.0); Mean Corp Hgb Conc. 32.5 g/dL (33.0-37.0); Mean Corpuscular Volume 90.0 fL (81.0-99.0); Platelet Count 244 10^3/uL (130-400); Red Cell Dist. Width 13.2 % (11.5-14.5)
[2025-07-08 18:14] LABS: ALT (SGPT) 52 U/L (0-35); AST (SGOT) 50 U/L (14-36); Albumin 4.2 g/dl (3.5-5.0); Alkaline Phosphatase 74 U/L (38-126); Blood Urea Nitrogen 14 mg/dl (7-17); Calcium 9.0 mg/dl (8.4-10.2); Carbon Dioxide 29 mmol/L (22-30); Chloride 101 mmol/L (98-107); Glucose 117 mg/dl (70-99); Potassium 4.3 mmol/L (3.5-5.1); Sodium 136 mmol/L (135-145); Total Protein 7.4 g/dl (6.3-8.2); eGFR > 60.00
[2025-07-08 18:31] LABS: Nucleated Red Blood Cells % 0 %
--- NOTE | 2025-07-08 19:31 | ED.GENMED ---
History of Present Illness
General
Chief Complaint: Skin Problem
Time Seen by Provider: 07/08/25 18:09
History of Present Illness
History of Present Illness:
Irene is a 69-year-old female with past medical history of hypertension and diabetes who presents requesting evaluation of her left thumb. She was recently started on an antibiotic for an upper respiratory infection by her primary care doctor and
she is concerned that this antibiotic is causing her to bruise more easily.Unsure if she has sustained any trauma to her left hand. No other complaints. Denies any pain. URI symptoms are improving.
Past History
Past History
ED Past Medical History: Cancer (Uterine cancer with Mets), HTN, NIDDM, Other (Bronchitis, pneumonia, arthritis, back and neck pain, PNA, DVT, ) and Other (Left jugular DVT from Infusaport along w/ infection from port/line)
ED Past Surgical History: Cholecystectomy, Gynecological (Hysterectomy uterine for CA), Urological (Bladder lift December 2022) and Other (cataracts); Negative Appendectomy or Bowel resection
Social History
Tobacco: Non-smoker
Alcohol: None
Drug: None
Personal:
Living: with family
Employment: Not employed
Family History
Family History: Hypertension
Phy Exam
General Physical Exam
General Presentation: well appearing and no apparent distress
General Skin: warm and dry
General Habitus: normal
General Mental: alert
General Hydration: appears well hydrated
ENT Exam
ENT Exam: EOMI, pharynx normal, neck supple and normocephalic
Eye Exam
Eye Exam: PERRL, cornea clear and conjunctiva normal
Cardiovascular Exam
Cardiovascular Exam: regular rate/rhythm, no edema, no murmur and normal peripheral pulses
Pulmonary Exam
Pulmonary Exam: lungs clear, no respiratory distress, no rales, no crackles, no rhonchi, no stridor, no wheezing and no cough
Gastrointestinal Exam
Gastrointestinal Exam: normal bowel sounds, non tender, soft, no organomegaly, no pulsatile mass and non distended
Neurological Exam
Neurological Exam: alert, oriented x3, no motor deficits and speech normal
Musculoskeletal Exam
Musculoskeletal Exam: full ROM, no edema and other (Small area of ecchymosis over left palmar thumb)
Skin Exam
Skin Exam: normal color, warm/dry, no rash and no petechia
Psychiatric Exam
Psychiatric Exam: normal mood/affect
Course
Orders/Labs/Results
Orders:
Orders
07/08/25 17:43
Complete Blood Count/With Diff Urgent
Comprehensive Metabolic Panel Urgent
Abnormal Lab Results
07/08/25
17:43
RBC 4.10 L 10^6/uL
(4.20-5.40)
Hct 36.9 L %
(37.0-47.0)
MCHC 32.5 L g/dL
(33.0-37.0)
Neutrophils % 34.6 L %
(42.2-75.2)
Lymphocytes % 53.5 H %
(20.5-51.1)
Glucose 117 H mg/dl
(70-99)
AST 50 H U/L
(14-36)
ALT 52 H U/L
(0-35)
07/08/25 17:43
07/08/25 17:43
Vital Signs
Initial and Last Documented VS:
Initial Vital Signs
Temp Pulse Resp BP Pulse Ox
36.9 C 81 16 129/55 98
07/08/25 17:34 07/08/25 17:34 07/08/25 17:34 07/08/25 17:34 07/08/25 17:34
Last Documented Vital Signs
Temp Pulse Resp BP Pulse Ox
36.9 C 81 16 129/55 98
07/08/25 17:34 07/08/25 17:34 07/08/25 17:34 07/08/25 17:34 07/08/25 17:34
MDM/Problems Addressed
Differential Diagnosis Includes:
Very consistent with ecchymosis. Although no reported trauma she does take aspirin and Plavix which puts her at increased risk for bruising. She has no pain no evidence of infection. Should follow-up with her primary care doctor regarding URI
symptoms that she states are improving.
*Pulse Oximetry
SaO2: 98
Oxygen Mode of Delivery: Room air
Patient hypoxic: no
*Critical Care Note
Total Time (30-74mins, 75-104mins- exclusive of procedures): Not Applicable
ED Attending Note
-
Portions of this chart may have been created with voice recognition software.� Occasional wrong word or��sound alike� substitutions may have occurred due to the inherent limitations of voice recognition software.
Discharge Plan
Departure
Patient Disposition: Home (Routine Discharge)
Date of Disposition: 07/08/25
Time of Disposition: 19:18
Patient with high blood pressure during this ER visit?: No
Discharge Problem:
Superficial bruising of thumb
Instructions: Taking care of bruises
Prescriptions:
No Action
metformin 500 MG tablet extended release 24 hr
500 mg PO DAILY
aspirin 81 mg capsule
81 mg PO DAILY Qty: 30 0RF
clopidogrel [Plavix] 75 mg tablet
75 mg PO DAILY Qty: 21 0RF
Referrals:
Grecia Linares NP [Family Provider, Family Practice]
Activity Restrictions/Additional Instructions:
Follow-up with your family doctor regarding your new medications.
Interventions
Interventions:
*General Assessment Last Done: 07/08/25 17:34
*Neglect/Abuse Screening Last Done: 07/08/25 17:34
*ED COVID-19 Vaccine History Last Done: 07/08/25 17:34
*ED Influenza Vaccine History Last Done: 07/08/25 17:34
[facility] Risk Assessment Tool Last Done: 07/08/25 18:20
*Risk Screen - Suicide (C-SSRS) Last Done: 07/08/25 18:29
*Nursing Disposition Last Done: 07/08/25 19:31
ED-Skin Assessment Last Done: 07/08/25 18:20
Discharge Date and Time
Print Language: MALIAN
== END 2025-07-08 19:30 | disposition home or self-care (01) ==
LOC: EMR 17:24
PROVIDERS: Emergency Medicine; EMERGENCY PHYSICIAN Emergency Medicine; FAMILY PHYSICIAN Nurse Practitioner Family
DX: S60.019A Contusion of unspecified thumb without damage to nail, initial encounter (principal); X58.XXXA Exposure to other specified factors, initial encounter; E11.9 Type 2 diabetes mellitus without complications; I10 Essential (primary) hypertension; Z86.718 Personal history of other venous thrombosis and embolism; Z85.42 Personal history of malignant neoplasm of other parts of uterus; Z90.49 Acquired absence of other specified parts of digestive tract
CPT/HCPCS: 99283; 80053; 85025